=== PATIENT | female | born 1950 | race Caucasian/White ===

== ENCOUNTER 2019-04-11 14:20 | Emergency (ER) | payer OTHER ==
--- OUTSIDE RECORDS SUMMARY | 2019-04-11 14:23 | XMS REPORT ---
:1950 Author Organization [facility] Care Team Providers Name Role Phone Meliza Worthy Provider Role Unavailable Allergies, Adverse Reactions, Alerts Substance Reaction Event Type N.K.D.A. Info Not Available Non Drug Allergy Problems Problem Type Condition Code Onset Dates Condition Status Assessment Pain in right shoulder M25.511 Active Assessment Pain in left shoulder M25.512 Active Assessment Need for influenza vaccination Z23 Active Assessment Sleeping difficulty G47.9 Active Assessment Osteoporosis without current M81.0 Active pathological fracture, unspecified osteoporosis type Problem Allergic rhinitis, unspecified J30.9 Active seasonality, unspecified trigger Problem Pneumococcal vaccine administered Z23 Active Problem Acute pain of right shoulder M25.511 Active Problem Elevated BP without diagnosis of R03.0 Active hypertension Problem Mixed hyperlipidemia E78.2 Active Problem Urinary frequency R35.0 Active Problem Status post fall Z91.81 Active Problem Vitamin D deficiency E55.9 Active Problem Thyroid disorder screening Z13.29 Active Problem Lipid screening Z13.220 Active Problem Pain in right shoulder M25.511 Active Problem Pain in left shoulder M25.512 Active Problem Memory problem R41.3 Active Problem Seasonal allergies J30.2 Active Problem Other chronic pain G89.29 Active Problem Sinus problem J34.9 Active Problem Depression screening Z13.31 Active Problem Fatigue, unspecified type R53.83 Active Problem Osteoporosis without current M81.0 Active pathological fracture, unspecified osteoporosis type Problem Sleeping difficulty G47.9 Active Problem Hypertension, unspecified type I10 Active Assessment Other chronic pain G89.29 Active Problem Hematuria, unspecified type R31.9 Active Problem Hypertension, uncontrolled I10 Active Problem Skin lesion L98.9 Active Problem Abnormal urinalysis R82.90 Active Problem Thrombocytosis D47.3 Active Problem Hyperglycemia R73.9 Active Problem Diarrhea, unspecified type R19.7 Active Medications Medication Code Code Instructions Start End Status Dosage System Date Date Enalapril ND 94578805487 20 MG Orally October 02, Active 1 tablet Maleate Once a day for 2018 high blood pressure Crestor [facility] 01012559153 20 MG Orally Oct 17, Active 1 tablet Once a day 2018 Amitriptyline [facility] 64273836590 25 MG Orally Jan 29, Active 1 tablet HCl Once a day 2018 at bedtime for sleep/pain Amlodipine [facility] 48919557258 10 MG Orally October 10, Active 1 tablet Besylate Once a day for 2019 high blood pressure Fish Oil [facility] [address]-33 Orally Once Active 2 capsules daily (OTC) Vitamin D [facility] 42185368973 1000 UNIT Active 2 tablets Orally Once (OTC) daily Alendronate [facility] 37798336789 70 MG Orally Jan 29May Active 1 tablet Sodium Once a week 2018 27, 30 minutes 2020 before the first food, beverage or medicine of the day with plain water Results No Known Results Immunizations Vaccine Administration Date FLUZONE HIGH DOSE OVER 65 Jan 29, 2019 Summary Purpose eClinicalWorks Submission
--- OUTSIDE RECORDS SUMMARY | 2019-04-11 14:23 | XMS REPORT ---
:1950 Author Organization eClinicalWorks Care Team Providers Name Role Phone Meliza Worthy Provider Role Unavailable Allergies No Known Allergies Problems Problem Type Condition Code Onset Dates Condition Status Problem Abnormal urinalysis R82.90 Active Problem Mixed hyperlipidemia E78.2 Active Problem Hyperglycemia R73.9 Active Problem Lipid screening Z13.220 Active Problem Acute pain of right shoulder M25.511 Active Problem Fatigue, unspecified type R53.83 Active Problem Pneumococcal vaccine administered Z23 Active Problem Allergic rhinitis, unspecified J30.9 Active seasonality, unspecified trigger Problem Depression screening Z13.31 Active Problem Vitamin D deficiency E55.9 Active Problem Urinary frequency R35.0 Active Problem Thyroid disorder screening Z13.29 Active Problem Thrombocytosis D47.3 Active Problem Sinus problem J34.9 Active Problem Seasonal allergies J30.2 Active Problem Elevated BP without diagnosis of R03.0 Active hypertension Problem Status post fall Z91.81 Active Problem Skin lesion L98.9 Active Problem Hypertension, unspecified type I10 Active Problem Memory problem R41.3 Active Problem Hematuria, unspecified type R31.9 Active Problem Hypertension, uncontrolled I10 Active Problem Diarrhea, unspecified type R19.7 Active Medications Medication Code System Code Instructions Start Date End Date Status Dosage Crestor [facility] [id number] 20 MG Orally Once Jan 16, Active 1 tablet a day 2019 Results No Known Results Summary Purpose eClinicalWorks Submission
[2019-04-11] MEDS ORDERED: HYDROCODONE/APAP 5/325 MG TAB ONE ×2 (15:41→17:29)
--- NOTE | 2019-04-11 17:41 | ER ---
Nurse's Notes [facility] Name: Lolita Larkin Age: 69 yrs Sex: Female : 1950 Arrival Date: 04/11/2019 Time: 14:23 Bed 16 Private MD: Diagnosis: Fracture of upper end of tibia-Nondisplaced right tibial plateau fracture Presentation: 04/11 15:10 Presenting complaint: Patient states: "I was coming down some steps and fell and my aa5 whole right leg is hurting". Transition of care: patient was not received from another setting of care. Onset of symptoms was April 09, 2019. Risk Assessment: Do you want to hurt yourself or someone else? Patient reports no desire to harm self or others. Initial Sepsis Screen: Does the patient meet any 2 criteria? No. Patient's initial sepsis screen is negative. Does the patient have a suspected source of infection? No. Patient's initial sepsis screen is negative. Care prior to arrival: None. 15:10 Acuity: RON 4 aa5 15:10 Method Of Arrival: Wheelchair aa5 Historical: - Allergies: 15:10 No Known Allergies; aa5 - PMHx: 15:10 Hypertension; aa5 - PSHx: 15:10 ; Appendectomy; Hernia repair; Tonsillectomy; aa5 - Immunization history:: Flu vaccine is not up to date. - Social history:: Smoking status: Patient uses tobacco products, smokes one-half pack cigarettes per day. - Ebola Screening: : No symptoms or risks identified at this time. Screenin:30 Abuse screen: Denies threats or abuse. Denies injuries from another. Nutritional ca1 screening: No deficits noted. Tuberculosis screening: No symptoms or risk factors identified. Fall Risk Ambulatory Aid- Crutches/Cane/Walker (15 pts). Assessment: 15:30 General: Appears in no apparent distress. comfortable, Behavior is calm, cooperative, ca1 appropriate for age. Pain: Complains of pain in right leg and right knee Pain currently is 10 out of 10 on a pain scale. Neuro: Level of Consciousness is awake, alert, obeys commands, Oriented to person, place, time, situation, Appropriate for age. Derm: Skin is intact, is healthy with good turgor, Skin is pink, warm \\T\\ dry. Bruising that is green, on right knee. Musculoskeletal: Circulation, motion, and sensation intact. Capillary refill < 3 seconds, Range of motion: limited in right knee Swelling present in right knee. 16:29 Reassessment: Patient appears in no apparent distress at this time. Patient and/or ca1 family updated on plan of care and expected duration. Pain level reassessed. Patient is alert, oriented x 3, equal unlabored respirations, skin warm/dry/pink. Vital Signs: 15:20 BP 139 / 64; Pulse 106; Resp 16 S; Temp 97.8(TE); Pulse Ox 99% on R/A; Weight 49.44 kg aa5 (R); Height 4 ft. 11 in. (149.86 cm); Pain 10/10; 19:09 BP 158 / 77; Pulse 77; Resp 16; Temp 97.5(O); Pulse Ox 97% on R/A; mh5 15:20 Body Mass Index 22.02 (49.44 kg, 149.86 cm) aa5 ED Course: 14:23 Patient arrived in ED. as 14:56 Lam Bain, BALWINDER is Primary Nurse. mg2 15:10 Arm band placed on. aa5 15:18 Triage completed. aa5 15:24 Geo Mayfield NP is PHCP. pm1 15:24 Enmanuel Petit MD is Attending Physician. pm1 15:30 Patient has correct armband on for positive identification. Bed in low position. Call ca1 light in reach. Side rails up X 1. Pulse ox on. NIBP on. Pillow given. 15:54 Knee Right 3 View XRAY In Process Unspecified. EDMS 17:11 Tib Fib Right XRAY In Process Unspecified. EDMS 17:39 Blayne Chavez MD is Referral Physician. pm1 18:00 Orthoglass splint: Posterior long leg splint applied on right leg. mh5 19:07 Crutch training done. mh5 19:31 No provider procedures requiring assistance completed. Patient did not have IV access rv during this emergency room visit. Administered Medications: 15:39 Drug: [place] 5 mg-325 mg 1 tabs {Note: RASS - 0.} Route: PO; ca1 16:30 Follow up: Response: No adverse reaction; Pain is decreased; RASS: Alert and Calm (0) ca1 17:33 Drug: [place] 5 mg-325 mg 1 tabs {Note: RASS - 0.} Route: PO; ca1 19:30 Follow up: Response: RASS: Alert and Calm (0) rv 18:21 Drug: fentaNYL (PF) 25 mcg {Note: RASS - 0.} Route: IM; Site: right deltoid; ca1 19:30 Follow up: Response: Pain is decreased; RASS: Alert and Calm (0) rv Outcome: 17:40 Discharge ordered by MD. pm1 19:31 Discharged to home with crutches, with family. rv 19:31 Condition: good 19:31 Discharge instructions given to patient, family, Instructed on discharge instructions, follow up and referral plans. medication usage, crutch walking, Demonstrated understanding of instructions, follow-up care, medications, crutch walking, Prescriptions given X 1. 19:31 Patient left the ED. rv Signatures: Dispatcher [employer] EDMS Christina Simon Audri, RN RN aa5 Geo Mayfield, ANSLEY UNARMED SECURITY GUARD pm1 Stefani Simon [facility] Lam Bain RN RN [facility] Darrian Mckee RN RN rv Colette Burger RN RN ca1 Corrections: (The following items were deleted from the chart) 15:18 15:17 Arm band placed on aa5 aa5
--- NOTE | 2019-04-11 17:41 | EDPHYS ---
Physician Documentation [facility] Name: Lolita Larkin Age: 69 yrs Sex: Female : 1950 Arrival Date: 04/11/2019 Time: 14:23 Bed 16 Private MD: ED Physician Enmanuel Petit HPI: 04/11 15:28 This 69 yrs old Female presents to ER via Wheelchair with complaints of Right pm1 knee pain. 15:28 The patient presents with pain, swelling. The complaints affect the right knee. pm1 Context: The problem was sustained outdoors, resulted from the patient falling, while jumping, the patient can partially bear weight, using walker since the injury, Problem is a result from a previous injury: No. Onset: The symptoms/episode began/occurred 2 day(s) ago. Modifying factors: The symptoms are alleviated by lidocaine patched, mirtha wrap, rest and elevation. Associated signs and symptoms: Pertinent positives: swelling, of the right knee, Pertinent negatives calf tenderness, fever, numbness, tingling. Treatment prior to arrival includes: mirtha wrap, elevation of the extremity, over the counter medications, Lidoderm patches. Severity of symptoms: in the emergency department the symptoms are actually worse. The patient has not experienced similar symptoms in the past. It is unknown whether or not the patient has recently seen a physician. Patient was jumping down from a trailer but lost her balance and then landed on her right knee on the ground. Patient was able to get up and walk to her vehicle after the injury but has not been able to walk without a walker since then. Has been applying an mirtha wrap and lidocaine patches with limited relief. No other injury present: No pain or injury to head, neck, back, hips, ankles, or feet. Historical: - Allergies: 15:10 No Known Allergies; aa5 - PMHx: 15:10 Hypertension; aa5 - PSHx: 15:10 ; Appendectomy; Hernia repair; Tonsillectomy; aa5 - Immunization history:: Flu vaccine is not up to date. - Social history:: Smoking status: Patient uses tobacco products, smokes one-half pack cigarettes per day. - Ebola Screening: : No symptoms or risks identified at this time. ROS: 15:28 Constitutional: Negative for fever, chills, and weight loss, Eyes: Negative for injury, pm1 pain, redness, and discharge, ENT: Negative for injury, pain, and discharge, Neck: Negative for injury, pain, and swelling, Cardiovascular: Negative for chest pain, palpitations, and edema, Respiratory: Negative for shortness of breath, cough, wheezing, and pleuritic chest pain, Abdomen/GI: Negative for abdominal pain, nausea, vomiting, diarrhea, and constipation, Back: Negative for injury and pain, : Negative for injury, bleeding, discharge, and swelling. 15:28 Skin: Negative for injury, rash, and discoloration, Neuro: Negative for headache, weakness, numbness, tingling, and seizure. 15:28 MS/extremity: Positive for pain, swelling, of the right knee, Negative for abrasion, deformity, laceration, paresthesias, tingling. Exam: 15:28 Constitutional: This is a well developed, well nourished patient who is awake, alert, pm1 and in no acute distress. Head/Face: Normocephalic, atraumatic. Neck: Trachea midline, no thyromegaly or masses palpated, and no cervical lymphadenopathy. Supple, full range of motion without nuchal rigidity, or vertebral point tenderness. No Meningismus. Chest/axilla: Normal chest wall appearance and motion. Nontender with no deformity. No lesions are appreciated. Cardiovascular: Regular rate and rhythm with a normal S1 and S2. No gallops, murmurs, or rubs. Normal PMI, no JVD. No pulse deficits. Respiratory: Lungs have equal breath sounds bilaterally, clear to auscultation and percussion. No rales, rhonchi or wheezes noted. No increased work of breathing, no retractions or nasal flaring. Abdomen/GI: Soft, non-tender, with normal bowel sounds. No distension or tympany. No guarding or rebound. No evidence of tenderness throughout. Back: No spinal tenderness. No costovertebral tenderness. Full range of motion. Skin: Warm, dry with normal turgor. Normal color with no rashes, no lesions, and no evidence of cellulitis. 15:28 Musculoskeletal/extremity: Extremities: grossly normal except: noted in the right knee: swelling, tenderness, There is no evidence of abrasion, deformity, laceration, Pulses: noted to be 2+ in the right dorsalis pedis artery, the right leg Sensation intact. 15:28 Neuro: Orientation: is normal, Motor: is normal, moves all fours, Sensation: is normal, no obvious gross deficits. Vital Signs: 15:20 BP 139 / 64; Pulse 106; Resp 16 S; Temp 97.8(TE); Pulse Ox 99% on R/A; Weight 49.44 kg aa5 (R); Height 4 ft. 11 in. (149.86 cm); Pain 10; 19:09 BP 158 / 77; Pulse 77; Resp 16; Temp 97.5(O); Pulse Ox 97% on R/A; mh5 15:20 Body Mass Index 22.02 (49.44 kg, 149.86 cm) aa5 Procedures: 19:24 Splinting: Splint applied to right leg using Orthoglass splint, posterior long leg pm1 splint. applied by myself. tech. Examined by me, post splint application: neurovascular intact, 2+ distal pulses palpable, brisk capillary refill noted, Patient tolerated well, right foot placed in 90 degree angle. Ample padding applied to heel of foot. MDM: 15:24 Patient medically screened. [facility] 15:35 Data reviewed: vital signs. Data interpreted: Pulse oximetry: on room air is 99 %. pm1 Interpretation: normal. 17:39 Counseling: I had a detailed discussion with the patient and/or guardian regarding: the pm1 historical points, exam findings, and any diagnostic results supporting the discharge/admit diagnosis, radiology results, the need for outpatient follow up, for definitive care, a orthopedic surgeon, to return to the emergency department if symptoms worsen or persist or if there are any questions or concerns that arise at home. 04/11 15:28 Order name: Knee Right 3 View XRAY; Complete Time: 17:54 pm1 04/11 16:46 Order name: Tib Fib Right XRAY; Complete Time: 17:54 pm1 04/11 16:48 Order name: Splint - Posterior Leg; Complete Time: 17:39 pm1 04/11 18:01 Order name: Crutches; Complete Time: 19:06 [facility] Administered Medications: 15:39 Drug: [place] 5 mg-325 mg 1 tabs {Note: RASS - 0.} Route: PO; ca1 16:30 Follow up: Response: No adverse reaction; Pain is decreased; RASS: Alert and Calm (0) ca1 17:33 Drug: [place] 5 mg-325 mg 1 tabs {Note: RASS - 0.} Route: PO; ca1 19:30 Follow up: Response: RASS: Alert and Calm (0) rv 18:21 Drug: fentaNYL (PF) 25 mcg {Note: RASS - 0.} Route: IM; Site: right deltoid; ca1 19:30 Follow up: Response: Pain is decreased; RASS: Alert and Calm (0) rv Disposition: 04/11/19 17:40 Discharged to Home. Impression: Fracture of upper end of tibia - Nondisplaced right tibial plateau fracture. - Condition is Stable. - Discharge Instructions: Cast or Splint Care, Adult, Crutch Use, Nondisplaced Tibial Plateau Fracture. - Prescriptions for Tylenol- Codeine #3 300-30 mg Oral Tablet - take 2 tablet by ORAL route every 6 hours As needed; 30 tablet. - Medication Reconciliation Form, Thank You Letter, Antibiotic Education, Prescription Opioid Use form. - Follow up: Emergency Department; When: As needed; Reason: Worsening of condition. Follow up: Blayne Chavez; When: 2 - 3 days; Reason: Recheck today's complaints, Continuance of care, Re-evaluation by your physician. - Problem is new. - Symptoms have improved. Addendum: 04/14/2019 08:08 Co-signature as Attending Physician, Enmanuel Petit MD I agree with the assessment and c brady plan of care. Signatures: Dispatcher [employer] EDEnmanuel Willams MD MD cha Calderon, Audri, RN RN aa5 Geo Mayfield, ANSLEY GRIEVANCE AND APPEALS COORDINATOR pm1 Stefani Simon 5 Darrian Mckee RN RN rv Colette Burger RN RN ca1 Corrections: (The following items were deleted from the chart) 04/11 19:31 17:40 04/11/2019 17:40 Discharged to Home. Impression: Fracture of upper end of tibia - rv Nondisplaced right tibial plateau fracture. Condition is Stable. Discharge Instructions: Nondisplaced Tibial Plateau Fracture, Cast or Splint Care, Adult, Crutch Use. Prescriptions for Tylenol-Codeine #3 300-30 mg Oral Tablet - take 2 tablet by ORAL route every 6 hours As needed; 30 tablet. and Forms are Medication Reconciliation Form, Thank You Letter, Antibiotic Education, Prescription Opioid Use. Follow up: Emergency Department; When: As needed; Reason: Worsening of condition. Follow up: Blayne Chavez; When: 2 - 3 days; Reason: Recheck today's complaints, Continuance of care, Re-evaluation by your physician. Problem is new. Symptoms have improved. pm1
--- NOTE | 2019-04-11 17:50 | RAD REPORT ---
EXAM DESCRIPTION: RAD - Tib Fib Right - 04/11/2019 5:11 pm CLINICAL HISTORY: Right leg pain . FINDINGS: Nondisplaced fracture involves the proximal diaphysis of the tibia extending into the meta physis. It probably also involves the lateral tibial plateau. No dislocation Osteoporosis
--- NOTE | 2019-04-11 17:50 | RAD REPORT ---
EXAM DESCRIPTION: RAD - Knee Right 3 View - 04/11/2019 3:54 pm CLINICAL HISTORY: Right knee pain FINDINGS: Nondisplaced fracture involves the proximal diaphysis of the tibia extending into the meta physis. It probably also involves the lateral tibial plateau. No dislocation Osteoporosis
[2019-04-11] MEDS ORDERED: FENTANYL CITR 100 MCG/2 ML ONE (18:20)
[2019-04-11 19:55] VITALS: BP 158/77; TEMP 97.5; O2SAT 97
== END 2019-04-11 19:31 | disposition home or self-care (01) ==
LOC: ER 14:20
PROC: 2W3LX1Z Immobilization of Right Lower Extremity using Splint (ICD-10-PCS; principal; 2019-04-11)
DX: S82.144A Nondisplaced bicondylar fracture of right tibia, initial encounter for closed fracture (principal); W10.9XXA Fall (on) (from) unspecified stairs and steps, initial encounter; Y93.9 Activity, unspecified; Y92.9 Unspecified place or not applicable; F17.210 Nicotine dependence, cigarettes, uncomplicated
CPT/HCPCS: 73562; 73590; 96372; 99284; 29505; J3010

== ENCOUNTER 2022-03-29 05:59 | Day surgery (SDC) | payer OTHER ==
--- NOTE | 2022-03-28 15:00 | RAD REPORT ---
EXAM DESCRIPTION: RAD - Chest Pa And Lat (2 Views) - 03/28/2022 2:56 pm CLINICAL HISTORY: Pre op pending cholecystectomy COMPARISON: No comparisons FINDINGS: Lines: None. Lungs: No evidence of edema or pneumonia. Pleural: No significant pleural effusions or pneumothorax. Cardiac: The heart size is within normal limits. Mediastinum: Within normal limits. Bones: No acute fractures. Other: None IMPRESSION: No acute cardiopulmonary disease.
[2022-03-28 15:02] LABS: Absolute Lymphocytes (CBC) 2.1 K/uL (0.7-4.9); Hematocrit 38.5 % (36.0-45.0); Lymphocytes % 31.7 % (15.3-44.8); MCV 98.2 fL (80-100); MPV 6.9 fL (7.6-11.3); RBC Red Blood Cell Count 3.91 M/uL (3.86-4.86)
[2022-03-28 15:23] LABS: ALT/SGPT 12 U/L (13-56); AST/SGOT 11 U/L (15-37); Albumin 3.6 g/dL (3.4-5.0); Alkaline Phosphatase 77 U/L (45-117); Amylase 58 U/L (25-115); BUN Blood Urea Nitrogen 14 mg/dL (7-18); Bicarbonate 28 mmol/L (21-32); Bilirubin Total 0.3 mg/dL (0.2-1.0); Glomerular Filtration Rate 72 ml/min (=/>90); Glucose Level 102 mg/dL (74-106); Lipase 196 U/L (73-393); Potassium 5.5 mmol/L (3.5-5.1); Protein, Total 7.3 g/dL (6.4-8.2); Sodium Level 136 mmol/L (136-145)
[2022-03-28 15:27] LABS: Bilirubin Direct < 0.1 mg/dL (0-0.2)
[2022-03-29] MEDS ORDERED: CEFOXITIN SODIUM 1 GM/VIAL ONE (06:22)
[2022-03-29] MEDS ORDERED: Ringers Lactate 1,000 ML IV ONE (06:22)
[2022-03-29] MEDS ORDERED: HYDRALAZINE HCL 20 MG/ML VIAL ONE (06:35)
[2022-03-29] MEDS ORDERED: LIDOCAINE 2% MPF 5 ML VIAL ONE (07:16)
[2022-03-29] MEDS ORDERED: FENTANYL CITR 100 MCG/2 ML ONE (07:16)
[2022-03-29] MEDS ORDERED: ROCURONIUM 50 MG/5 ML VIAL IV ONE (07:16)
[2022-03-29] MEDS ORDERED: propofoL 200 MG/20 ML VIAL IV ONE (07:16)
[2022-03-29] MEDS ORDERED: NS 0.9% VIAL 10 ML ONE (07:39)
[2022-03-29] MEDS ORDERED: KETOROLAC 30 MG/ML INJ ONE (07:48)
[2022-03-29] MEDS ORDERED: dexAMETHasone 10 MG/ML VIAL ONE (07:48)
[2022-03-29] MEDS ORDERED: ONDANSETRON 4 MG/2 ML VIAL ONE (07:57)
[2022-03-29] MEDS ORDERED: GLYCOPYRROLATE 0.2 MG/ML SYR ONE (08:00)
[2022-03-29] MEDS ORDERED: NEOSTIGMINE 1 MG/ML -5 ML ONE (08:01)
[2022-03-29] MEDS ORDERED: SUGAMMADEX SODIUM 200 MG/2 ML VIAL IV ONE (08:09)
--- NOTE | 2022-03-29 08:11 | P.BOP ---
Preoperative diagnosis: acute cholecystitis, symptomatic cholelithiasis Postoperative diagnosis: same Primary procedure: Laparoscopic cholecystectomy Estimated blood loss: <10cc Specimen: gb Findings: as above Anesthesia: General Complications: None Transferred to: Recovery Room Condition: Good
[2022-03-29] MEDS: HYDROMORPHONE HCL 1 MG/ML INJ ONE ×3 (08:22→08:39)
[2022-03-29 09:03] VITALS: BP 132/55; TEMP 98.3; O2SAT 98
[2022-03-29] MEDS ORDERED: CODEINE 30MG/APAP 300MG TAB PO ONE (09:11)
[2022-03-29] MEDS ORDERED: CODEINE 30MG/APAP 300MG TAB ONE (09:18)
--- NOTE | 2022-03-29 11:12 | OP ---
Date of Procedure: 03/29/2022 Surgeon: Mac Simon MD Preoperative Diagnosis: Acute cholecystitis, symptomatic cholelithiasis. Postoperative Diagnosis: Acute cholecystitis, symptomatic cholelithiasis. Procedure: Laparoscopic cholecystectomy. Estimated Blood Loss: Less than 10 cc. Specimen: Gallbladder. Anesthesia: General plus local. Indication: This is a case of a 72-year-old patient who comes to us with above diagnosis. Fully exp lained the benefits, alternatives, and risks of laparoscopic, possible open cholecystectomy, which in clude, but not limited to, infection, bleeding, damage to adjacent structures, anesthesia complicatio n, choledocholithiasis, bile leak, pancreatitis, VT, and even . She also understands this may n ot relieve any symptoms. She may need more than one surgical intervention. She understood, signed a consent. Description Of Procedure: Patient was brought to the operating room, placed in supine position. Ane sthesia was done without complication. Abdominal area was prepped and draped in the usual sterile fa shion. Marcaine 0.5% was injected for local anesthetic followed by sharp incision of the skin in the periumbilical region. Incision was carried down to fascia, which was opened under direct vision. P eritoneum was encountered, opened under direct vision. Vicryl #1 placed inside the fascia. Shawn t rocar was carefully introduced. Pneumoperitoneum was obtained. I placed 3 more trocars, 5 mm each o ne of them, in the epigastric, right upper quadrant area under direct visualization. This allowed me to put a grasper in the fundus of the gallbladder. Another grasper in the infundibulum, retracting the gallbladder in the inferolateral fashion, exposing the triangle of Calot, obtaining critical view . Cystic duct and cystic artery were clearly isolated, freed circumferentially and a connection betw een those and the gallbladder were clearly identified. I proceeded to ligate those by using at least 3 clips proximal, 1 clip distal, ligation in the middle. Same was done with the cystic artery. No bile leak. No bleeding. The gallbladder was removed from the liver using Bovie cauterizer and remov ed from abdominal cavity using EndoCatch through the umbilical incision. Area was inspected once aga in. No bile leak. No bleeding. At that moment, I proceeded to remove the trocars under direct visi on, deflated pneumoperitoneum. Closed the fascia with #1 Vicryl, irrigated the subcutaneous tissue, closed that with 3-0 chromic and the skin with olivier. Sponge count and instrument counts correct. Patient tolerated the procedure well. Patient was sent to Recovery in stable condition. HUDSON/YADI Voice ID: [id number] Report ID: [id number]
--- NOTE | 2022-03-29 11:24 | DS ---
Date of Discharge: 03/29/2022 Diagnoses: Acute cholecystitis and symptomatic cholelithiasis. Procedure: Laparoscopic cholecystectomy surgery by Dr. Simon. Discharge Disposition: Home. Condition On Discharge: Stable. Follow Up: In my office in 1 week. Call for appointment at [phone]. Discharge Instructions: Keep area dry for 48 hours, then may shower. AMANDA Voice ID: [id number] Report ID: [id number]
--- NOTE | 2022-03-30 17:51 | EKG ---
Test Date: 2022-03-28 Test Time: 14:40:06 Major Appliance Assembly Supervisor: ELBERT MEASUREMENT RESULTS: Intervals: Rate: 77 TX: 132 QRSD: 60 QT: 378 QTc: 427 [place]: P: 66 TX: 132 QRS: 46 T: 70 INTERPRETIVE STATEMENTS: Normal sinus rhythm Possible Left atrial enlargement ST & T wave abnormality, consider anterior ischemia Abnormal ECG Compared to ECG 03/03/2005 09:15:00 No significant changes Electronically Signed On 03-30-22 17:46:03 ROTARY FILTER OPERATOR by Sandro Waterman
== END 2022-03-29 09:40 | disposition home or self-care (01) ==
LOC: OR 05:59
PROVIDERS: ATTEND Surgery
PROC: 0FT44ZZ Resection of Gallbladder, Percutaneous Endoscopic Approach (ICD-10-PCS; principal; 2022-03-29 07:30)
DX: K80.10 Calculus of gallbladder with chronic cholecystitis without obstruction (principal); I10 Essential (primary) hypertension
CPT/HCPCS: 93005; 85025; 80048; 36415 ×2; 82150; 84132; 80076; 88304; 83690; 71046; 47562; J0360; J2704; J2001; J3010; J1100; A4216; J1170; J2710; J7120; J0694; J2405

== ENCOUNTER 2022-10-02 19:41 | Emergency (ER) | payer OTHER ==
--- OUTSIDE RECORDS SUMMARY | 2022-10-02 19:49 | XMS REPORT | Continuity of Care Document ---
:1950 Author Organization [facility] t Address [address] [place] [address] [address] [place] [address] Care Team Providers Name Role Phone ADRIANNA WOODALL Primary Care Physician Unavailable Yumiko Guevara Attending Clinician Unavailable Adrianna Woodall Attending Clinician Unavailable Muriel Sepulveda Attending Clinician Unavailable Meliza Worthy Attending Clinician Unavailable Dave Caruso Attending Clinician MARCELO TODD Attending Clinician Unavailable Marcelo Todd MD Attending Clinician Doctor Unassigned, [place] Attending Clinician Unavailable Clinic, Pcp Neurology Attending Clinician Unavailable Jenny Jerome RN Attending Clinician Unavailable GEO SONI Attending Clinician Unavailable GEO SONI Attending Clinician Unavailable MARCELO TODD Admitting Clinician Unavailable GEO SONI Admitting Clinician Unavailable Payers Payer Name Policy Type Policy Number Effective Date Expiration Date S daniel [employer] [id number] 2020spring 00:00:[facility] [id number] [facility] iv[facility] ing Medicare 00:00:[address] [facility] MEDICARE MB [id number] 2018 [facility] NOVITAS 00:00:00 - [facility] [employer] C1 [id number] 2020 [facility] iván ing Medicare 00:00:00 [facility] MEDICARE MB [id number] 2018 [facility] NOVITAS 00:00:00 [facility] MEDICARE MB [id number] 2018 [facility] NOVITAS 00:00:00 [facility] [employer] C1 [id number] 2020 [facility] iván ing Medicare 00:00:00 [facility] [employer] C1 [id number] 2020 [facility] iván ing Medicare 00:00:00 [facility] MEDICARE MB [id number] 2018 [facility] NOVITAS 00:00:00 [facility] Problems Condition Condition Condition Status Onset Resolution Last Treating Co mments Source Name Details Category Date Date Treatment Clinician Date 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, fracture, 04-23 ity of closed, closed, 00:00: [place] initial initial 00 Medical encounter encounter Bran [id number] Vitamin D Problem Comm on deficiency [facility] [id number] Hypertensi Problem Com mon on, Spirit uncontroll - [facility] ed [facility] [id number] Other Problem Common chronic [facility] pain [facility] [id number] Sleeping Problem Comm on difficulty [facility] [id number] Osteoporos Problem Com mon is without Spirit current - [facility] pathologic [facility] fracture, Medical unspecifie Center d osteoporos is type Adjustment Grieving Problem Com mon disorder Spirit with - [facility] depressed [facility] [id number] Pain in Problem Common right Spirit shoulder [facility] Mixed Mixed Problem Common hyperlipid hyperlipid Sp iván emia emia [facility] [id number] Closed Problem Common nondisplac [facility] - [facility] fracture St of right [facility] tibial Medical plateau Center with routine healing, subsequent encounter [id number] Primary Problem Comm on osteoarthr Spirit itis of - [facility] right knee [facility] Hyperlipid Borderline Problem C ommon aemia hyperlipid [facility] emia [facility] Pure Essential Problem Common hyperglyce hypertrigl Sp iván ridemia yceridemia [facility] [id number] Recurrent Problem Com mon falls [facility] [id number] Depression Problem Co mmon with Spirit anxiety [facility] [id number] Primary Problem Common insomnia [facility] [id number] Smokes 1/2 Problem Co mmon pack a day Spirit or less [facility] [id number] Memory Problem Common change [facility] Gallstones Gallstones Problem C ommon [facility] [id number] Status Problem Common post fall [facility] [id number] Allergic Problem Commo n rhinitis, Spirit unspecifie - [facility] d [facility] y, Medical unspecifie Center d trigger Amnesia Amnesia Problem Active 2022-09-02 Me nadine (finding) (finding) 13:46:22 l Active Tariq Problem 09/02/2022 [facility] [place] 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 13:46:22 l s s Tariq (disorder) (disorder) Active Problem 09/02/2022 [facility] [place] Allergies, Adverse Reactions, Alerts Allergy Allergy Status Severity Reaction(s) Onset Inactive Treating Comm ents Source Name Type Date Date Clinician gabapent gabapent Active vomiting Comm on in in [facility] NO KNOWN Drug Active Univers ALLERGIE Class ity of S [facility] No Known No Known Active Memori a Medicati Medicati l on on Tariq Allergie Allergie s s Social History Social Habit Start Date Stop Date Quantity Comments Source History of Current Smoker [facility] Spi rit - Tobacco Use [facility] Sex Assigned At Common Sp iván - [facility] Exposure to Not sure University of SARS-CoV-2 [place] [facility] (event) Branch Tobacco use and 2021-02-21 2021-02-21 Never used Universit y of exposure 00:00:00 00:00:00 [facility] Smoking Status Start Date Stop Date Source Tobacco smoking status Mello Potter Current Smoker 2022-08-18 00:00:00 [facility] Medications Ordered Filled Start Stop Current Ordering Indication Dosage Frequency Signature Comments Components Source Medication Medication Date Date Medication? Clinician (SIG) Name Name Jaswinder San No 1{table QD Rosuvastat n Calcium n Calcium 6-02 t} in Calcium 10 MG 10 MG 00:00: 10 MG 00 acetaminoph Yes TAKE 1 Prem emily en-hydrocod 5-31 TABLET BY l one 325 19:38: MOUTH [place]ind[place] mg-5 mg 00 TWICE oral tablet DAILY FOR 28 DAYS alendronate Yes TAKE ONE Me moria 70 mg oral 5-31 TABLET BY l tablet 19:38: MOUTH 30 Tariq 00 MINUTES BEFORE THE FIRST FOOD, BEVERAGE, OR MEDICINE OF THE DAY WITH PLAIN WATER ONCE A WEEK amitriptyli Yes TAKE 1 Prem emily ne 25 mg 5-31 TABLET BY l oral tablet 19:38: MOUTH ONCE [place]ind[place] 00 DAILY AT BEDTIME FOR SLEEP/PAIN sertraline Yes TAKE 1 Memor ia 100 mg oral 5-31 TABLET BY l tablet 19:38: MOUTH ONCE Sushma nn 00 DAILY enalapril 0 Yes 0 Memoria 20 mg oral 5-31 Refill(s) l tablet 19:37: [place] 00 amLODIPine 0 Yes 0 Memoria 10 mg oral 5-31 Refill(s) l tablet 19:37: [place] 00 Sertraline Sertraline 2021-04 No 1{table QD Sertraline HCl 100 MG HCl 100 MG 1-11 t} HCl 100 MG 00:00: 00 Sertraline Sertraline 2021-04 No 1{table QD Sertraline HCl 100 MG HCl 100 MG 1-11 t} HCl 100 MG 00:00: 00 Sertraline Sertraline 2021- No 1{table QD Sertraline HCl 100 MG HCl 100 MG 1-11 t} HCl 100 MG 00:00: 00 Sertraline Sertraline 2021- No 1{table QD Sertraline HCl 100 MG HCl 100 MG 1-11 t} HCl 100 MG 00:00: 00 Sertraline Sertraline 2021- No 1{table QD Sertraline HCl 100 MG HCl 100 MG 1-11 t} HCl 100 MG 00:00: 00 Sertraline Sertraline 2021-0 No 1{table QD Sertraline HCl 50 MG HCl 50 MG 4-12 t} HCl 50 MG 00:00: 00 Sertraline Sertraline 2021-0 No 1{table QD Sertraline HCl 50 MG HCl 50 MG 4-12 t} HCl 50 MG 00:00: 00 Sertraline Sertraline 2021-0 No 1{table QD Sertraline HCl 50 MG HCl 50 MG 4-12 t} HCl 50 MG 00:00: 00 Acetaminoph Acetaminoph 2021- No QID Acetaminop en-Codeine en-Codeine 04-22 hen-Codein #3 300-30 #3 300-30 00:00: 00:00 e #3 MG MG 00 :00 300-30 MG Acetaminoph Acetaminoph 2020-04- No QID Acetaminop en-Codeine en-Codeine 05-24 hen-Codein #3 300-30 #3 300-30 00:00: 00:00 e #3 MG MG 00 :00 300-30 MG Macrobid Macrobid 2020-04 202- No 1{capsu BID Macrobid 100 MG 100 MG 05-09 le_with 100 MG 00:00: 00:00 _food} 00 :00 Macrobid Macrobid 2020-04- No 1{capsu BID Macrobid 100 MG 100 MG 05-09- le_with 100 MG 00:00: 00:00 _food} 00 :00 HYDROcodone HYDROcodone 2020-04- No QID HYDROcodon -Acetaminop -Acetaminop - 12-17 e-Acetamin hen 5-325 hen 5-325 00:00: 00:00 ophen MG MG 00 :00 5-325 MG HYDROcodone HYDROcodone 2020-04- No QID HYDROcodon -Acetaminop -Acetaminop - 12-17 e-Acetamin hen 5-325 hen 5-325 00:00: 00:00 ophen MG MG 00 :00 5-325 MG amLODIPine 2020-04 Yes [id number] 10mg Take 1 Univers 10 mg 1-24 tablet by ity of tablet 00:00: mouth [place] 00 daily. Medical Branch amLODIPine 2020-04 Yes [id number] 10mg Take 1 Univers 10 mg 1-24 tablet by ity of tablet 00:00: mouth [place] 00 daily. [facility] Branch amLODIPine 2020-04 Yes [id number] 10mg Take 1 Univers 10 mg 1-24 tablet by ity of tablet 00:00: mouth [place] 00 daily. [facility] Branch amLODIPine 2020-04 Yes [id number] 10mg Take 1 Univers 10 mg 1-24 tablet by ity of tablet 00:00: mouth [place] 00 daily. [facility] Branch amLODIPine 2020-04 Yes [id number] 10mg Take 1 Univers 10 mg 1-24 tablet by ity of tablet 00:00: mouth [place] 00 daily. [facility] Branch rosuvastati 2020-04 Yes 20mg 20 mg, Univ ers n (CRESTOR) 1-23 Oral, QHS, it y of tablet 20 03:00: [place] 00 on [facility] [place] 02/21/21 Branch at 2100, Until Discontinu ed, Routine cefTRIAXone 2020-04 Yes 1000mg 1,000 mg, Univers (ROCEPHIN) 1-23 IV ity of 1,000 mg in 00:45: Piggyback, [place] NaCl 0.9% 00 Q24H ABX, Medic al (NS) 50 mL First dose Bra nch MINI-BAG on [facility] 02/21/21 at 1845, Until Discontinu ed, Administer over 30 Minutes, 50 mL
Reas on for Anti-Infec tive: Documented Infection< br>Documen salena Infection Site: Urine
D uration of Therapy: Other (see Comments) sulfamethox 2020-04 Yes [id number] 1{tbl} Take 1 Univers azole-trime 1-23 tablet by ity of thoprim 00:00: mouth 2 [place] (BACTRIM 00 (two) Medical DS) 800-160 times Branch mg per daily. tablet docusate 2020-04 Yes [id number] 100mg Take 1 U nivers 100 mg 1-23 capsule by ity of capsule 00:00: mouth 2 [place] 00 (two) Medical times Branch daily. rosuvastati 2020-04 Yes [id number] 20mg Take 1 Univers n 20 mg 1-23 tablet by ity of tablet 00:00: mouth at [place] 00 bedtime. [facility] Branch sulfamethox 2020-04 Yes [id number] 1{tbl} Take 1 Univers azole-trime 1-23 tablet by ity of thoprim 00:00: mouth 2 [place] (BACTRIM 00 (two) Medical DS) 800-160 times Branch mg per daily. tablet docusate 2020-04 Yes [id number] 100mg Take 1 U nivers 100 mg 1-23 capsule by ity of capsule 00:00: mouth 2 [place] (two) Medical times Branch daily. rosuvastati 2020-04 Yes [id number] 20mg Take 1 Univers n 20 mg 1-23 tablet by ity of tablet 00:00: mouth at [place] [address] bedtime. Medical Branch sulfamethox 2020-04 Yes [id number] 1{tbl} Take 1 Univers azole-trime 1-23 tablet by ity of thoprim 00:00: mouth 2 [place] (BACTRIM 00 (two) Medical DS) 800-160 times Branch mg per daily. tablet docusate 2020-04 Yes [id number] 100mg Take 1 U nivers 100 mg 1-23 capsule by ity of capsule 00:00: mouth 2 [place] (two) Medical times [place] daily. rosuvastati 2020-04 Yes [id number] 20mg Take 1 Univers n 20 mg 1-23 tablet by ity of tablet 00:00: mouth at [place] [address] bedtime. Medical Branch sulfamethox 2020-04 Yes [id number] 1{tbl} Take 1 Univers azole-trime 1-23 tablet by ity of thoprim 00:00: mouth 2 [place] (BACTRIM 00 (two) Medical DS) 800-160 times Branch mg per daily. tablet docusate 2020-04 Yes [id number] 100mg Take 1 U nivers 100 mg 1-23 capsule by ity of capsule 00:00: mouth 2 [place] [address] (two) Medical times [place] daily. rosuvastati 2020-04 Yes [id number] 20mg Take 1 Univers n 20 mg 1-23 tablet by ity of tablet 00:00: mouth at [place] [address] bedtime. Medical Branch sulfamethox 2020-04 Yes [id number] 1{tbl} Take 1 Univers azole-trime 1-23 tablet by ity of thoprim 00:00: mouth 2 [place] (BACTRIM 00 (two) Medical DS) 800-160 times Branch mg per daily. tablet docusate 2020-04 Yes [id number] 100mg Take 1 U nivers 100 mg 1-23 capsule by ity of capsule 00:00: mouth 2 [place] 00 (two) Medical times Branch daily. rosuvastati 2020-04 Yes [id number] 20mg Take 1 Univers n 20 mg 1-23 tablet by ity of tablet 00:00: mouth at [place] 00 bedtime. Medical Branch acetaminoph 2020-04- No [id number] 325mg Take 1 Univers en 325 mg -23 11-24 tablet by ity of tablet 00:00: 05:59 mouth [place] 00 :00 every 6 Medical (six) Branch hours as needed for Pain (scale 1-3). acetaminoph 2020-04- No [id number] 325mg Take 1 Univers en 325 mg 1-23 11-24 tablet by ity of tablet 00:00: 05:59 mouth [place] 00 :00 every 6 Medical (six) Branch hours as needed for Pain (scale 1-3). acetaminoph 2020-04- No [id number] 325mg Take 1 Univers en 325 mg -23 11-24 tablet by ity of tablet 00:00: 05:59 mouth [place] 00 :00 every 6 Medical (six) Branch hours as needed for Pain (scale 1-3). acetaminoph 2020-04- No [id number] 325mg Take 1 Univers en 325 mg -23 11-24 tablet by ity of tablet 00:00: 05:59 mouth [place] 00 :00 every 6 Medical (six) Branch hours as needed for Pain (scale 1-3). acetaminoph 2020-04- No [id number] 325mg Take 1 Univers en 325 mg -23 11-24 tablet by ity of tablet 00:00: 05:59 mouth [place] 00 :00 every 6 Medical (six) Branch hours as needed for Pain (scale 1-3). HYDROcodone 2020-04- No [id number] 1{tbl} Take 1 U nivers -acetaminop 04-24 12- tablet by it y of hen 5-325 00:00: 05:59 mouth [place] mg tablet 00 :00 every 4 Medical (four) Branch hours as needed for Pain (scale 7-10) for up to 7 days. Indication s: acute pain HYDROcodone 2020-04- No [id number] 1{tbl} Take 1 U nivers -acetaminop 04-24 tablet by it y of hen 5-325 00:00: 05:59 mouth [place] mg tablet 00 :00 every 4 Medical (four) Branch hours as needed for Pain (scale 7-10) for up to 7 days. Indication s: acute pain HYDROcodone 2020-04 Yes 1{tbl} 1 tablet, Univers -acetaminop 04-23 Oral, ity of hen (NORCO 17:45: Q4HPRN, [place] 5) 5-325 mg 00 Starting Medi nadiya tablet 1 on [facility] tablet 02/21/21 at 1145, Until Discontinu ed, Routine, Pain (scale 7-10) acetaminoph 2020-04 Yes 325mg 325 mg, Un pat en 04-23 Oral, ity of (TYLENOL) 17:15: Q6HPRN, [place] tablet 325 00 Starting Medic al mg on [facility] Branch 02/21/21 at 1115, Until Discontinu ed, Routine, Pain (scale 4-6) amLODIPine 2020-04 Yes 10mg 10 mg, Unive rs (NORVASC) 04-23 Oral, ity of tablet 10 15:00: DAILY, [place] mg 00 First dose Medical on [facility] 02/21/21 at 0900, Until Discontinu ed, Routine famotidine 2020-04 Yes 20mg 20 mg, Unive rs (PEPCID AC) 04-23 Oral, BID, it y of tablet 20 14:00: First dose [place] mg 00 on [facility] [place] 02/21/21 Branch at 0800, Until Discontinu ed, Routine docusate 2020-04 Yes 100mg 100 mg, Unive rs (COLACE) 04-23 Oral, BID, ity o f capsule 100 14:00: First dose [place] mg 00 on [facility] [place] 02/21/21 Branch at 0800, Until Discontinu ed, Routine iopamidol 2020-04- No [id number] 100mL 100 mL, Univers (ISOVUE 04-23 Intravenou ity o f 370-500 mL) 10:00: 09:50 s, ONCE, 1 [place] injection 00 :00 dose, On Medica l 100 mL [place] Branch 02/21/21 at 0415, Routine KCL 2020-04 20meq 20 mEq, Univers (KLOR-CON 04-23 Oral, ity of M20) tablet 09:30: 10:10 ONCE, 1 [place] 20 mEq 00 :00 dose, On Medical [place] Branch 02/21/21 at 0330, Routine NaCl 0.9% 2020-04 Yes 1000mL at 42 Unive rs (NS) IV 1-22 mL/hr, IV ity of infusion 07:15: Infusion, [place] 1,000 mL 00 CONTINUOUS Medic al , Starting Branch on Sun02/21/21 at 0115, Until Discontinu ed, Routine HYDROcodone 2020-04 1{tbl} 1 tablet, Univers -acetaminop 04-23 Oral, ity of hen (NORCO 07:01: 17:40 Q6HPRN, [place] as 5) 5-325 mg 12 :05 Starting Medi nadiya tablet 1 on [place] Branch tablet 02/21/21 at 0101, Until Sun02/21/21 at 1140, Routine, Pain (scale 7-10) acetaminoph 2020-04 No 325mg 325 mg, U nivers en 04-23 Oral, ity of (TYLENOL) 07:01: 17:04 Q4HPRN, [place] tablet 325 10 :05 Starting Medic al mg on [place] Branch 02/21/21 at 0101, Until Sun02/21/21 at 1104, Routine, Pain (scale 4-6) acetaminoph 2020-04 Yes 325mg 325 mg, Un pat en 04-23 Oral, ity of (TYLENOL) 07:01: Q6HPRN, [place] tablet 325 09 Starting Medic al mg on Sun Branch 02/21/21 at 0101, Until Discontinu ed, Routine, Pain (scale 1-3) bisacodyL 2020-04 Yes 10mg 10 mg, Univer s (DULCOLAX) 04-23 Rectal, ity of suppository 06:59: QHSPRN, [place] as 10 mg 17 Starting Medical on [place] Branch 02/21/21 at 0059, Until Discontinu ed, Routine, Constipati on NaCl 0.9% 2020-04 Yes 5mL 5 mL, Slow Un pat (NS) 1- IV Push, ity of injection 5 06:59: PRN - SEE [place] mL 16 [facility] Medical NS, Branch Starting on Sun02/21/21 at 0059, Until Discontinu ed, 10 mL Gemfibrozil Gemfibrozil 1-0 No BID Gemfibrozi 600 MG 600 MG 8-05 l 600 MG 00:00: 00 Gemfibrozil Gemfibrozil 2021-0 No BID Gemfibrozi 600 MG 600 MG 8-05 l 600 MG 00:00: 00 Gemfibrozil Gemfibrozil 2021-0 No BID Gemfibrozi 600 MG 600 MG 8-05 l 600 MG 00:00: 00 Gemfibrozil Gemfibrozil 2021-0 No BID Gemfibrozi 600 MG 600 MG 8-05 l 600 MG 00:00: 00 Gemfibrozil Gemfibrozil 2021-0 No BID Gemfibrozi 600 MG 600 MG 8-05 l 600 MG 00:00: 00 Gemfibrozil Gemfibrozil 2021-0 No BID Gemfibrozi 600 MG 600 MG 8-05 l 600 MG 00:00: 00 Gemfibrozil Gemfibrozil 1-0 No BID Gemfibrozi 600 MG 600 MG 8-05 l 600 MG 00:00: 00 busPIRone busPIRone 1-0 No 1{table busPIRone HCl 7.5 MG HCl 7.5 MG 3-08 t} HCl 7.5 MG 00:00: 00 busPIRone busPIRone 1-0 No 1{table busPIRone HCl 7.5 MG HCl 7.5 MG 3-08 t} HCl 7.5 MG 00:00: 00 busPIRone busPIRone 1-0 No 1{table busPIRone HCl 7.5 MG HCl 7.5 MG 3-08 t} HCl 7.5 MG 00:00: 00 busPIRone busPIRone 1-0 No 1{table busPIRone HCl 7.5 MG HCl 7.5 MG 3-08 t} HCl 7.5 MG 00:00: 00 busPIRone busPIRone 2020-0 No 1{table busPIRone HCl 7.5 MG HCl 7.5 MG 3-08 t} HCl 7.5 MG 00:00: 00 busPIRone busPIRone 2020-0 No 1{table busPIRone HCl 7.5 MG HCl 7.5 MG 3-08 t} HCl 7.5 MG 00:00: 00 busPIRone busPIRone 2020-0 No 1{table busPIRone HCl 7.5 MG HCl 7.5 MG 3-08 t} HCl 7.5 MG 00:00: 00 busPIRone busPIRone 2020-0 No 1{table busPIRone HCl 7.5 MG HCl 7.5 MG 3-08 t} HCl 7.5 MG 00:00: 00 busPIRone busPIRone 2020-0 No 1{table busPIRone HCl 7.5 MG HCl 7.5 MG 3-08 t} HCl 7.5 MG 00:00: 00 Bupivicaine Bupivicaine 2020-0 No 4mL [place] 4[place]02 Spirit 00:00: - [facility] 00 [facility] Kenalog Kenalog 2020-0 No 40mg Common (Triamcinol (Triamcinol 4-02 S pirit one) one) 00:00: - [facility]I 00 [facility] Bupivicaine Bupivicaine 2020-0 No 4mL [place] 4[place]02 Spirit 00:00: - [facility]I 00 [facility] Kenalog Kenalog 2020-0 No 40mg Common (Triamcinol (Triamcinol 4-02 S pirit one) one) 00:00: - CHI 00 [facility] Bupivicaine Bupivicaine 2020-0 No 4mL [place] 4[place]02 Spirit 00:00: - CHI 00 [facility] Kenalog Kenalog 2020-0 No 40mg Common (Triamcinol (Triamcinol 4-02 S pirit one) one) 00:00: - CHI 00 [facility] Bupivicaine Bupivicaine 2020-0 No 4mL [place] 4[place]02 Spirit 00:00: - CHI 00 [facility] Kenalog Kenalog 2020-0 No 40mg Common (Triamcinol (Triamcinol 4-02 S pirit one) one) 00:00: - CHI 00 [facility] Bupivicaine Bupivicaine 2020-0 No 4mL [place] 4[place]02 Spirit 00:00: - CHI 00 [facility] Kenalog Kenalog 2020-0 No 40mg Common (Triamcinol (Triamcinol 4-02 S pirit one) one) 00:00: - CHI 00 [facility] Bupivicaine Bupivicaine 2020-0 No 4mL [place] 4[place]02 Spirit 00:00: - CHI 00 [facility] Kenalog Kenalog 2020-0 No 40mg Common (Triamcinol (Triamcinol 4-02 S pirit one) one) 00:00: - CHI 00 [facility] Bupivicaine Bupivicaine 2020-0 No 4mL [place] 4[place]02 Spirit 00:00: - CHI 00 [facility] Kenalog Kenalog 2020-0 No 40mg Common (Triamcinol (Triamcinol 4-02 S pirit one) one) 00:00: - CHI 00 [facility] Bupivicaine Bupivicaine 2020-0 No 4mL [place] 4[place]02 Spirit 00:00: - CHI 00 [facility] Kenalog Kenalog 2020-0 No 40mg Common (Triamcinol (Triamcinol 4-02 S pirit one) one) 00:00: - CHI 00 [facility] Bupivicaine Bupivicaine 2020-0 No 4mL [place] 4[place]02 Spirit 00:00: - CHI 00 [facility] Kenalog Kenalog 2020-0 No 40mg Common (Triamcinol (Triamcinol 4-02 S pirit one) one) 00:00: - CHI 00 [facility] Bupivicaine Bupivicaine 2020-0 No 4mL [place] 4[place]02 Spirit 00:00: - CHI 00 [facility] Kenalog Kenalog 2020-0 No 40mg Common (Triamcinol (Triamcinol 4-02 S pirit one) one) 00:00: - CHI 00 [facility] Bupivicaine Bupivicaine 2020-0 No 4mL [place] 4[place]02 Spirit 00:00: - CHI 00 [facility] Kenalog Kenalog 2020-0 No 40mg Common (Triamcinol (Triamcinol 4-02 S pirit one) one) 00:00: - CHI 00 [facility] Bupivicaine Bupivicaine 2020-0 No 4mL [place] 4[place]02 Spirit 00:00: - CHI 00 [facility] Kenalog Kenalog 2020-0 No 40mg Common (Triamcinol (Triamcinol 4-02 S pirit one) one) 00:00: - CHI 00 [facility] Bupivicaine Bupivicaine 2020-0 No 4mL [place] 4[place]02 Spirit 00:00: - CHI 00 [facility] Kenalog Kenalog 2020-0 No 40mg Common (Triamcinol (Triamcinol 4-02 S pirit one) one) 00:00: - CHI 00 [facility] Bupivicaine Bupivicaine 2020-0 No 4mL [place] 4[place]02 Spirit 00:00: - CHI 00 [facility] Kenalog Kenalog 2020-0 No 40mg Common (Triamcinol (Triamcinol 4-02 S pirit one) one) 00:00: - CHI 00 [facility] Bupivicaine Bupivicaine 2020-0 No 4mL [place] 4[place] Spirit 00:00: - CHI 00 [facility] Kenalog Kenalog 2020-0 No 40mg Common (Triamcinol (Triamcinol 4-02 S pirit one) one) 00:00: - CHI 00 [facility] Bupivicaine Bupivicaine 2020-0 No 4mL [place] 4[place]02 Spirit 00:00: - CHI 00 [facility] Kenalog Kenalog 2020-0 No 40mg Common (Triamcinol (Triamcinol 4-02 S pirit one) one) 00:00: - CHI 00 [facility] Amitriptyli Amitriptyli 2018- Yes Meliza 1 tablet Common ne HCl ne HCl 0-30 [place] at bedtime Spirit 00:00: as needed - [facility]I for St sleep/pain [facility] Crestor Crestor 2018- Yes [place] 1 tablet Co mmon 0-17 [place] Spirit 00:00: - [facility] Amlodipine Amlodipine Yes Meliza 1 tablet Common Besylate Besylate 7-11 [place] Sp iván 00:00: - [facility] Enalapril Enalapril Yes Meliza 1 tablet Common Maleate Maleate 7-03 [place] Spir it 00:00: - [facility] Fish Oil Fish Oil Yes Meliza 2 capsules Common [place] (OTC) [facility] Vitamin D Vitamin D Yes Meliza 2 tablets Common [place] (OTC) [facility] Rosuvastati Rosuvastati Yes Meliza not Common n Calcium n Calcium [place] defined [facility] Gabapentin Gabapentin Yes Meliza 1 capsule Common [place] as needed Spiri t for [facility] Enalapril Enalapril No 1{table Enalapril Maleate 20 Maleate 20 t} Maleate 20 MG MG MG Fenofibrate Fenofibrate No 1{capsu QD Fenofibrat 67 MG 67 MG le_with e 67 MG _a_meal } Fish Oil Fish Oil No QD Fish Oil Crestor 20 Crestor 20 No 1{table QD Crestor 20 MG MG t} MG Amitriptyli Amitriptyli No QD Amitriptyl ne HCl 25 ne HCl 25 ine HCl 25 MG MG MG Rosuvastati Rosuvastati No Rosuvastat n Calcium n Calcium in Calcium Ergocalcife Ergocalcife No 1{capsu Ergocalcif rol 1.25 MG rol 1.25 MG le} hansel 1.25 ( UT) ( UT) MG ( UT) Vitamin D Vitamin D No QD Vitamin D 50 MCG 50 MCG 50 MCG (1999 UT) (1999 UT) (1999 UT) amLODIPine amLODIPine No 1{table amLODIPine Besylate 10 Besylate 10 t} Besylate MG MG 10 MG Alendronate Alendronate No Alendronat Sodium 70 Sodium 70 e Sodium MG MG 70 MG Rosuvastati Rosuvastati No Rosuvastat n Calcium n Calcium in Calcium amLODIPine amLODIPine No 1{table amLODIPine Besylate 10 Besylate 10 t} Besylate MG MG 10 MG Fish Oil Fish Oil No QD Fish Oil Fenofibrate Fenofibrate No 1{capsu QD Fenofibrat 67 MG 67 MG le_with e 67 MG _a_meal } Ergocalcife Ergocalcife No 1{capsu Ergocalcif rol 1.25 MG rol 1.25 MG le} hansel 1.25 ( UT) ( UT) MG ( UT) Amitriptyli Amitriptyli No QD Amitriptyl ne HCl 25 ne HCl 25 ine HCl 25 MG MG MG Vitamin D Vitamin D No QD Vitamin D 50 MCG 50 MCG 50 MCG (1999 UT) (1999 UT) (1999) Enalapril Enalapril No 1{table Enalapril Maleate 20 Maleate 20 t} Maleate 20 MG MG MG Alendronate Alendronate No Alendronat Sodium 70 Sodium 70 e Sodium MG MG 70 MG Crestor 20 Crestor 20 No 1{table QD Crestor 20 MG MG t} MG Rosuvastati Rosuvastati No Rosuvastat n Calcium n Calcium in Calcium amLODIPine amLODIPine No 1{table amLODIPine Besylate 10 Besylate 10 t} Besylate MG MG 10 MG Fish Oil Fish Oil No QD Fish Oil Fenofibrate Fenofibrate No 1{capsu QD Fenofibrat 67 MG 67 MG le_with e 67 MG _a_meal } Ergocalcife Ergocalcife No 1{capsu Ergocalcif rol 1.25 MG rol 1.25 MG le} hansel 1.25 ( UT) ( UT) MG ( UT) Amitriptyli Amitriptyli No QD Amitriptyl ne HCl 25 ne HCl 25 ine HCl 25 MG MG MG Vitamin D Vitamin D No QD Vitamin D 50 MCG 50 MCG 50 MCG (1999 UT) (1999 UT) (1999 UT) Enalapril Enalapril No 1{table Enalapril Maleate 20 Maleate 20 t} Maleate 20 MG MG MG Alendronate Alendronate No Alendronat Sodium 70 Sodium 70 e Sodium MG MG 70 MG Crestor 20 Crestor 20 No 1{table QD Crestor 20 MG MG t} MG Rosuvastati Rosuvastati No Rosuvastat n Calcium n Calcium in Calcium amLODIPine amLODIPine No 1{table amLODIPine Besylate 10 Besylate 10 t} Besylate MG MG 10 MG Fish Oil Fish Oil No QD Fish Oil Fenofibrate Fenofibrate No 1{capsu QD Fenofibrat 67 MG 67 MG le_with e 67 MG _a_meal } Ergocalcife Ergocalcife No 1{capsu Ergocalcif rol 1.25 MG rol 1.25 MG le} hansel 1.25 ( UT) ( UT) MG ( UT) Amitriptyli Amitriptyli No QD Amitriptyl ne HCl 25 ne HCl 25 ine HCl 25 MG MG MG Vitamin D Vitamin D No QD Vitamin D 50 MCG 50 MCG 50 MCG (1999) (1999) (1999) Enalapril Enalapril No 1{table Enalapril Maleate 20 Maleate 20 t} Maleate 20 MG MG MG Alendronate Alendronate No Alendronat Sodium 70 Sodium 70 e Sodium MG MG 70 MG Crestor 20 Crestor 20 No 1{table QD Crestor 20 MG MG t} MG Vitamin D Vitamin D No QD Vitamin D 50 MCG 50 MCG 50 MCG (1999) (1999) (1999) Ergocalcife Ergocalcife No 1{capsu Ergocalcif rol 1.25 MG rol 1.25 MG le} hansel 1.25 ( UT) ( UT) MG ( UT) Crestor 20 Crestor 20 No 1{table QD Crestor 20 MG MG t} MG amLODIPine amLODIPine No 1{table amLODIPine Besylate 10 Besylate 10 t} Besylate MG MG 10 MG Rosuvastati Rosuvastati No Rosuvastat n Calcium n Calcium in Calcium Enalapril Enalapril No 1{table Enalapril Maleate 20 Maleate 20 t} Maleate 20 MG MG MG Fish Oil Fish Oil No QD Fish Oil Alendronate Alendronate No Alendronat Sodium 70 Sodium 70 e Sodium MG MG 70 MG Fenofibrate Fenofibrate No 1{capsu QD Fenofibrat 67 MG 67 MG le_with e 67 MG _a_meal } Amitriptyli Amitriptyli No QD Amitriptyl ne HCl 25 ne HCl 25 ine HCl 25 MG MG MG Vitamin D Vitamin D No QD Vitamin D 50 MCG 50 MCG 50 MCG (1999) (1999) (1999) Ergocalcife Ergocalcife No 1{capsu Ergocalcif rol 1.25 MG rol 1.25 MG le} hansel 1.25 ( UT) ( UT) MG ( UT) Crestor 20 Crestor 20 No 1{table QD Crestor 20 MG MG t} MG amLODIPine amLODIPine No 1{table amLODIPine Besylate 10 Besylate 10 t} Besylate MG MG 10 MG Rosuvastati Rosuvastati No Rosuvastat n Calcium n Calcium in Calcium Enalapril Enalapril No 1{table Enalapril Maleate 20 Maleate 20 t} Maleate 20 MG MG MG Fish Oil Fish Oil No QD Fish Oil Alendronate Alendronate No Alendronat Sodium 70 Sodium 70 e Sodium MG MG 70 MG Fenofibrate Fenofibrate No 1{capsu QD Fenofibrat 67 MG 67 MG le_with e 67 MG _a_meal } Amitriptyli Amitriptyli No QD Amitriptyl ne HCl 25 ne HCl 25 ine HCl 25 MG MG MG Ergocalcife Ergocalcife No 1{capsu Ergocalcif rol 1.25 MG rol 1.25 MG le} hansel 1.25 ( UT) ( UT) MG ( UT) Enalapril Enalapril No 1{table Enalapril Maleate 20 Maleate 20 t} Maleate 20 MG MG MG Alendronate Alendronate No Alendronat Sodium 70 Sodium 70 e Sodium MG MG 70 MG amLODIPine amLODIPine No 1{table amLODIPine Besylate 10 Besylate 10 t} Besylate MG MG 10 MG Fenofibrate Fenofibrate No 1{capsu QD Fenofibrat 67 MG 67 MG le_with e 67 MG _a_meal } Fish Oil Fish Oil No QD Fish Oil Amitriptyli Amitriptyli No QD Amitriptyl ne HCl 25 ne HCl 25 ine HCl 25 MG MG MG Vitamin D Vitamin D No QD Vitamin D 50 MCG 50 MCG 50 MCG (1999) (1999 UT) (1999 UT) Rosuvastati Rosuvastati No Rosuvastat n Calcium n Calcium in Calcium Crestor 20 Crestor 20 No 1{table QD Crestor 20 MG MG t} MG Gemfibrozil Gemfibrozil No BID Gemfibrozi 600 MG 600 MG l 600 MG Ergocalcife Ergocalcife No 1{capsu Ergocalcif rol 1.25 MG rol 1.25 MG le} hansel 1.25 ( UT) ( UT) MG ( UT) Enalapril Enalapril No 1{table Enalapril Maleate 20 Maleate 20 t} Maleate 20 MG MG MG Alendronate Alendronate No Alendronat Sodium 70 Sodium 70 e Sodium MG MG 70 MG Rosuvastati Rosuvastati No Rosuvastat n Calcium n Calcium in Calcium Vitamin D Vitamin D No QD Vitamin D 50 MCG 50 MCG 50 MCG (1999) (1999) (1999) Fenofibrate Fenofibrate No 1{capsu QD Fenofibrat 67 MG 67 MG le_with e 67 MG _a_meal } Amitriptyli Amitriptyli No QD Amitriptyl ne HCl 25 ne HCl 25 ine HCl 25 MG MG MG amLODIPine amLODIPine No 1{table amLODIPine Besylate 10 Besylate 10 t} Besylate MG MG 10 MG Fish Oil Fish Oil No QD Fish Oil Crestor 20 Crestor 20 No 1{table QD Crestor 20 MG MG t} MG Alendronate Alendronate No Alendronat Sodium 70 Sodium 70 e Sodium MG MG 70 MG Ergocalcife Ergocalcife No 1{capsu Ergocalcif rol 1.25 MG rol 1.25 MG le} hansel 1.25 ( UT) ( UT) MG ( UT) Fenofibrate Fenofibrate No 1{capsu QD Fenofibrat 67 MG 67 MG le_with e 67 MG _a_meal } Fish Oil Fish Oil No QD Fish Oil Amitriptyli Amitriptyli No QD Amitriptyl ne HCl 25 ne HCl 25 ine HCl 25 MG MG MG amLODIPine amLODIPine No 1{table amLODIPine Besylate 10 Besylate 10 t} Besylate MG MG 10 MG Rosuvastati Rosuvastati No Rosuvastat n Calcium n Calcium in Calcium Enalapril Enalapril No 1{table Enalapril Maleate 20 Maleate 20 t} Maleate 20 MG MG MG Vitamin D Vitamin D No QD Vitamin D 50 MCG 50 MCG 50 MCG (1999 UT) (1999) (1999) Crestor 20 Crestor 20 No 1{table QD Crestor 20 MG MG t} MG Gemfibrozil Gemfibrozil No BID Gemfibrozi 600 MG 600 MG l 600 MG busPIRone busPIRone No busPIRone HCl 7.5 MG HCl 7.5 MG HCl 7.5 MG Amitriptyli Amitriptyli No QD Amitriptyl ne HCl 25 ne HCl 25 ine HCl 25 MG MG MG Vitamin D Vitamin D No QD Vitamin D 50 MCG 50 MCG 50 MCG (1999) (1999) (1999) Fish Oil Fish Oil No QD Fish Oil amLODIPine amLODIPine No 1{table amLODIPine Besylate 10 Besylate 10 t} Besylate MG MG 10 MG Alendronate Alendronate No Alendronat Sodium 70 Sodium 70 e Sodium MG MG 70 MG Enalapril Enalapril No 1{table Enalapril Maleate 20 Maleate 20 t} Maleate 20 MG MG MG Fenofibrate Fenofibrate No 1{capsu QD Fenofibrat 67 MG 67 MG le_with e 67 MG _a_meal } Rosuvastati Rosuvastati No Rosuvastat n Calcium n Calcium in Calcium Crestor 20 Crestor 20 No 1{table QD Crestor 20 MG MG t} MG Ergocalcife Ergocalcife No 1{capsu Ergocalcif rol 1.25 MG rol 1.25 MG le} hansel 1.25 ( UT) ( UT) MG ( UT) Gemfibrozil Gemfibrozil No BID Gemfibrozi 600 MG 600 MG l 600 MG Gemfibrozil Gemfibrozil No BID Gemfibrozi 600 MG 600 MG l 600 MG Amitriptyli Amitriptyli No QD Amitriptyl ne HCl 25 ne HCl 25 ine HCl 25 MG MG MG Vitamin D Vitamin D No QD Vitamin D 50 MCG 50 MCG 50 MCG (1999) (1999) (1999 UT) Fish Oil Fish Oil No QD Fish Oil Ergocalcife Ergocalcife No 1{capsu Ergocalcif rol 1.25 MG rol 1.25 MG le} hansel 1.25 ( UT) ( UT) MG ( UT) Fenofibrate Fenofibrate No 1{capsu QD Fenofibrat 67 MG 67 MG le_with e 67 MG _a_meal } Enalapril Enalapril No 1{table Enalapril Maleate 20 Maleate 20 t} Maleate 20 MG MG MG Crestor 20 Crestor 20 No 1{table QD Crestor 20 MG MG t} MG Rosuvastati Rosuvastati No Rosuvastat n Calcium n Calcium in Calcium amLODIPine amLODIPine No 1{table amLODIPine Besylate 10 Besylate 10 t} Besylate MG MG 10 MG busPIRone busPIRone No busPIRone HCl 7.5 MG HCl 7.5 MG HCl 7.5 MG Alendronate Alendronate No Alendronat Sodium 70 Sodium 70 e Sodium MG MG 70 MG Gemfibrozil Gemfibrozil No BID Gemfibrozi 600 MG 600 MG l 600 MG Amitriptyli Amitriptyli No QD Amitriptyl ne HCl 25 ne HCl 25 ine HCl 25 MG MG MG Vitamin D Vitamin D No QD Vitamin D 50 MCG 50 MCG 50 MCG (1999) (1999) (1999) Fish Oil Fish Oil No QD Fish Oil Ergocalcife Ergocalcife No 1{capsu Ergocalcif rol 1.25 MG rol 1.25 MG le} hanesl 1.25 ( UT) ( UT) MG ( UT) busPIRone busPIRone No 1{table BID busPIRone HCl 7.5 MG HCl 7.5 MG t} HCl 7.5 MG Enalapril Enalapril No 1{table Enalapril Maleate 20 Maleate 20 t} Maleate 20 MG MG MG Crestor 20 Crestor 20 No 1{table QD Crestor 20 MG MG t} MG Rosuvastati Rosuvastati No Rosuvastat n Calcium n Calcium in Calcium amLODIPine amLODIPine No 1{table amLODIPine Besylate 10 Besylate 10 t} Besylate MG MG 10 MG Fenofibrate Fenofibrate No 1{capsu QD Fenofibrat 67 MG 67 MG le_with e 67 MG _a_meal } Alendronate Alendronate No Alendronat Sodium 70 Sodium 70 e Sodium MG MG 70 MG Fish Oil Fish Oil No QD Fish Oil Ergocalcife Ergocalcife No 1{capsu Ergocalcif rol 1.25 MG rol 1.25 MG le} hansel 1.25 (25529 UT) ( UT) MG ( UT) Fenofibrate Fenofibrate No 1{capsu QD Fenofibrat 67 MG 67 MG le_with e 67 MG _a_meal } Gemfibrozil Gemfibrozil No BID Gemfibrozi 600 MG 600 MG l 600 MG Amitriptyli Amitriptyli No QD Amitriptyl ne HCl 25 ne HCl 25 ine HCl 25 MG MG MG Rosuvastati Rosuvastati No Rosuvastat n Calcium n Calcium in Calcium Vitamin D Vitamin D No QD Vitamin D 50 MCG 50 MCG 50 MCG (1999 UT) (1999) (1999) Alendronate Alendronate No Alendronat Sodium 70 Sodium 70 e Sodium MG MG 70 MG Crestor 20 Crestor 20 No 1{table QD Crestor 20 MG MG t} MG amLODIPine amLODIPine No 1{table amLODIPine Besylate 10 Besylate 10 t} Besylate MG MG 10 MG Enalapril Enalapril No 1{table Enalapril Maleate 20 Maleate 20 t} Maleate 20 MG MG MG busPIRone busPIRone No 1{table BID busPIRone HCl 7.5 MG HCl 7.5 MG t} HCl 7.5 MG Fish Oil Fish Oil No QD Fish Oil Ergocalcife Ergocalcife No 1{capsu Ergocalcif rol 1.25 MG rol 1.25 MG le} hansel 1.25 (19657 UT) ( UT) MG ( UT) Fenofibrate Fenofibrate No 1{capsu QD Fenofibrat 67 MG 67 MG le_with e 67 MG _a_meal } Gemfibrozil Gemfibrozil No BID Gemfibrozi 600 MG 600 MG l 600 MG Amitriptyli Amitriptyli No QD Amitriptyl ne HCl 25 ne HCl 25 ine HCl 25 MG MG MG Rosuvastati Rosuvastati No Rosuvastat n Calcium n Calcium in Calcium Vitamin D Vitamin D No QD Vitamin D 50 MCG 50 MCG 50 MCG (1999 UT) (1999 UT) (1999) Alendronate Alendronate No Alendronat Sodium 70 Sodium 70 e Sodium MG MG 70 MG Crestor 20 Crestor 20 No 1{table QD Crestor 20 MG MG t} MG amLODIPine amLODIPine No 1{table amLODIPine Besylate 10 Besylate 10 t} Besylate MG MG 10 MG Enalapril Enalapril No 1{table Enalapril Maleate 20 Maleate 20 t} Maleate 20 MG MG MG busPIRone busPIRone No 1{table BID busPIRone HCl 7.5 MG HCl 7.5 MG t} HCl 7.5 MG Fish Oil Fish Oil No QD Fish Oil Ergocalcife Ergocalcife No 1{capsu Ergocalcif rol 1.25 MG rol 1.25 MG le} hansel 1.25 ( UT) ( UT) MG ( UT) Fenofibrate Fenofibrate No 1{capsu QD Fenofibrat 67 MG 67 MG le_with e 67 MG _a_meal } Gemfibrozil Gemfibrozil No BID Gemfibrozi 600 MG 600 MG l 600 MG Amitriptyli Amitriptyli No QD Amitriptyl ne HCl 25 ne HCl 25 ine HCl 25 MG MG MG Rosuvastati Rosuvastati No Rosuvastat n Calcium n Calcium in Calcium Vitamin D Vitamin D No QD Vitamin D 50 MCG 50 MCG 50 MCG (1999 UT) (1999 UT) (1999 UT) Alendronate Alendronate No Alendronat Sodium 70 Sodium 70 e Sodium MG MG 70 MG Crestor 20 Crestor 20 No 1{table QD Crestor 20 MG MG t} MG amLODIPine amLODIPine No 1{table amLODIPine Besylate 10 Besylate 10 t} Besylate MG MG 10 MG Enalapril Enalapril No 1{table Enalapril Maleate 20 Maleate 20 t} Maleate 20 MG MG MG busPIRone busPIRone No 1{table BID busPIRone HCl 7.5 MG HCl 7.5 MG t} HCl 7.5 MG Rosuvastati Rosuvastati No Rosuvastat n Calcium n Calcium in Calcium Ergocalcife Ergocalcife No 1{capsu Ergocalcif rol 1.25 MG rol 1.25 MG le} hansel 1.25 ( UT) ( UT) MG ( UT) Alendronate Alendronate No Alendronat Sodium 70 Sodium 70 e Sodium MG MG 70 MG Sertraline Sertraline No 1{table QD Sertraline HCl 50 MG HCl 50 MG t} HCl 50 MG amLODIPine amLODIPine No 1{table amLODIPine Besylate 10 Besylate 10 t} Besylate MG MG 10 MG busPIRone busPIRone No 1{table BID busPIRone HCl 7.5 MG HCl 7.5 MG t} HCl 7.5 MG Vitamin D Vitamin D No QD Vitamin D 50 MCG 50 MCG 50 MCG (1999 UT) (1999) (1999) Crestor 20 Crestor 20 No 1{table QD Crestor 20 MG MG t} MG Enalapril Enalapril No 1{table Enalapril Maleate 20 Maleate 20 t} Maleate 20 MG MG MG Amitriptyli Amitriptyli No QD Amitriptyl ne HCl 25 ne HCl 25 ine HCl 25 MG MG MG Gemfibrozil Gemfibrozil No BID Gemfibrozi 600 MG 600 MG l 600 MG Fenofibrate Fenofibrate No 1{capsu QD Fenofibrat 67 MG 67 MG le_with e 67 MG _a_meal } Fish Oil Fish Oil No QD Fish Oil Sertraline Sertraline No 1{table QD Sertraline HCl 50 MG HCl 50 MG t} HCl 50 MG Fish Oil Fish Oil No QD Fish Oil Ergocalcife Ergocalcife No 1{capsu Ergocalcif rol 1.25 MG rol 1.25 MG le} hansel 1.25 ( UT) ( UT) MG ( UT) Crestor 20 Crestor 20 No 1{table QD Crestor 20 MG MG t} MG Alendronate Alendronate No Alendronat Sodium 70 Sodium 70 e Sodium MG MG 70 MG busPIRone busPIRone No busPIRone HCl 7.5 MG HCl 7.5 MG HCl 7.5 MG amLODIPine amLODIPine No amLODIPine Besylate 10 Besylate 10 Besylate MG MG 10 MG Amitriptyli Amitriptyli No QD Amitriptyl ne HCl 25 ne HCl 25 ine HCl 25 MG MG MG Enalapril Enalapril No Enalapril Maleate 20 Maleate 20 Maleate 20 MG MG MG Vitamin D Vitamin D No QD Vitamin D 50 MCG 50 MCG 50 MCG (1999) (1999) (1999) Gemfibrozil Gemfibrozil No Gemfibrozi 600 MG 600 MG l 600 MG Fenofibrate Fenofibrate No 1{capsu QD Fenofibrat 67 MG 67 MG le_with e 67 MG _a_meal } Rosuvastati Rosuvastati No Rosuvastat n Calcium n Calcium in Calcium Sertraline Sertraline No 1{table QD Sertraline HCl 50 MG HCl 50 MG t} HCl 50 MG Fish Oil Fish Oil No QD Fish Oil Ergocalcife Ergocalcife No 1{capsu Ergocalcif rol 1.25 MG rol 1.25 MG le} hansel 1.25 ( UT) ( UT) MG () Crestor 20 Crestor 20 No 1{table QD Crestor 20 MG MG t} MG Alendronate Alendronate No Alendronat Sodium 70 Sodium 70 e Sodium MG MG 70 MG busPIRone busPIRone No busPIRone HCl 7.5 MG HCl 7.5 MG HCl 7.5 MG amLODIPine amLODIPine No amLODIPine Besylate 10 Besylate 10 Besylate MG MG 10 MG Amitriptyli Amitriptyli No QD Amitriptyl ne HCl 25 ne HCl 25 ine HCl 25 MG MG MG Enalapril Enalapril No Enalapril Maleate 20 Maleate 20 Maleate 20 MG MG MG Vitamin D Vitamin D No QD Vitamin D 50 MCG 50 MCG 50 MCG (1999) (1999) (1999) Gemfibrozil Gemfibrozil No Gemfibrozi 600 MG 600 MG l 600 MG Fenofibrate Fenofibrate No 1{capsu QD Fenofibrat 67 MG 67 MG le_with e 67 MG _a_meal } Rosuvastati Rosuvastati No Rosuvastat n Calcium n Calcium in Calcium Amitriptyli Amitriptyli No QD Amitriptyl ne HCl 25 ne HCl 25 ine HCl 25 MG MG MG Vitamin D Vitamin D No QD Vitamin D 50 MCG 50 MCG 50 MCG (1999) (1999) (1999) Alendronate Alendronate No Alendronat Sodium 70 Sodium 70 e Sodium MG MG 70 MG Sertraline Sertraline No Sertraline HCl 50 MG HCl 50 MG HCl 50 MG Rosuvastati Rosuvastati No Rosuvastat n Calcium n Calcium in Calcium Enalapril Enalapril No Enalapril Maleate 20 Maleate 20 Maleate 20 MG MG MG busPIRone busPIRone No busPIRone HCl 7.5 MG HCl 7.5 MG HCl 7.5 MG Fenofibrate Fenofibrate No 1{capsu QD Fenofibrat 67 MG 67 MG le_with e 67 MG _a_meal } Gemfibrozil Gemfibrozil No Gemfibrozi 600 MG 600 MG l 600 MG Crestor 20 Crestor 20 No 1{table QD Crestor 20 MG MG t} MG amLODIPine amLODIPine No amLODIPine Besylate 10 Besylate 10 Besylate MG MG 10 MG Ergocalcife Ergocalcife No 1{capsu Ergocalcif rol 1.25 MG rol 1.25 MG le} hansel 1.25 ( UT) ( UT) MG ( UT) Fish Oil Fish Oil No QD Fish Oil Amitriptyli Amitriptyli No QD Amitriptyl ne HCl 25 ne HCl 25 ine HCl 25 MG MG MG Vitamin D Vitamin D No QD Vitamin D 50 MCG 50 MCG 50 MCG (1999 UT) (1999) (1999) Alendronate Alendronate No Alendronat Sodium 70 Sodium 70 e Sodium MG MG 70 MG Sertraline Sertraline No Sertraline HCl 50 MG HCl 50 MG HCl 50 MG Rosuvastati Rosuvastati No Rosuvastat n Calcium n Calcium in Calcium Enalapril Enalapril No Enalapril Maleate 20 Maleate 20 Maleate 20 MG MG MG busPIRone busPIRone No busPIRone HCl 7.5 MG HCl 7.5 MG HCl 7.5 MG Fenofibrate Fenofibrate No 1{capsu QD Fenofibrat 67 MG 67 MG le_with e 67 MG _a_meal } Gemfibrozil Gemfibrozil No Gemfibrozi 600 MG 600 MG l 600 MG Crestor 20 Crestor 20 No 1{table QD Crestor 20 MG MG t} MG amLODIPine amLODIPine No amLODIPine Besylate 10 Besylate 10 Besylate MG MG 10 MG Ergocalcife Ergocalcife No 1{capsu Ergocalcif rol 1.25 MG rol 1.25 MG le} hansel 1.25 ( UT) (30749 UT) MG (79555 UT) Fish Oil Fish Oil No QD Fish Oil Alendronate Alendronate No Alendronat Sodium 70 Sodium 70 e Sodium MG MG 70 MG Sertraline Sertraline No 1{table QD Sertraline HCl 50 MG HCl 50 MG t} HCl 50 MG Amitriptyli Amitriptyli No QD Amitriptyl ne HCl 25 ne HCl 25 ine HCl 25 MG MG MG amLODIPine amLODIPine No 1{table amLODIPine Besylate 10 Besylate 10 t} Besylate MG MG 10 MG Gemfibrozil Gemfibrozil No BID Gemfibrozi 600 MG 600 MG l 600 MG amLODIPine amLODIPine No amLODIPine Besylate 10 Besylate 10 Besylate MG MG 10 MG Rosuvastati Rosuvastati No 1{table QD Rosuvastat n Calcium n Calcium t} in Calcium 20 MG 20 MG 20 MG Enalapril Enalapril No Enalapril Maleate 20 Maleate 20 Maleate 20 MG MG MG busPIRone busPIRone No busPIRone HCl 7.5 MG HCl 7.5 MG HCl 7.5 MG Vitamin D3 Vitamin D3 No 1{table QD Vitamin D3 125 MCG 125 MCG t} 125 MCG (5000 UT) (5000 UT) (5000 UT) Fenofibrate Fenofibrate No 1{capsu QD Fenofibrat 67 MG 67 MG le_with e 67 MG _a_meal } Alendronate Alendronate No Alendronat Sodium 70 Sodium 70 e Sodium MG MG 70 MG Sertraline Sertraline No 1{table QD Sertraline HCl 50 MG HCl 50 MG t} HCl 50 MG Amitriptyli Amitriptyli No QD Amitriptyl ne HCl 25 ne HCl 25 ine HCl 25 MG MG MG amLODIPine amLODIPine No 1{table amLODIPine Besylate 10 Besylate 10 t} Besylate MG MG 10 MG Gemfibrozil Gemfibrozil No BID Gemfibrozi 600 MG 600 MG l 600 MG amLODIPine amLODIPine No amLODIPine Besylate 10 Besylate 10 Besylate MG MG 10 MG Rosuvastati Rosuvastati No 1{table QD Rosuvastat n Calcium n Calcium t} in Calcium 20 MG 20 MG 20 MG Enalapril Enalapril No Enalapril Maleate 20 Maleate 20 Maleate 20 MG MG MG busPIRone busPIRone No busPIRone HCl 7.5 MG HCl 7.5 MG HCl 7.5 MG Vitamin D3 Vitamin D3 No 1{table QD Vitamin D3 125 MCG 125 MCG t} 125 MCG (5000 UT) (5000 UT) (5000 UT) Fenofibrate Fenofibrate No 1{capsu QD Fenofibrat 67 MG 67 MG le_with e 67 MG _a_meal } Alendronate Alendronate No Alendronat Sodium 70 Sodium 70 e Sodium MG MG 70 MG Sertraline Sertraline No 1{table QD Sertraline HCl 50 MG HCl 50 MG t} HCl 50 MG Amitriptyli Amitriptyli No QD Amitriptyl ne HCl 25 ne HCl 25 ine HCl 25 MG MG MG amLODIPine amLODIPine No 1{table amLODIPine Besylate 10 Besylate 10 t} Besylate MG MG 10 MG Gemfibrozil Gemfibrozil No BID Gemfibrozi 600 MG 600 MG l 600 MG amLODIPine amLODIPine No amLODIPine Besylate 10 Besylate 10 Besylate MG MG 10 MG Rosuvastati Rosuvastati No 1{table QD Rosuvastat n Calcium n Calcium t} in Calcium 20 MG 20 MG 20 MG Enalapril Enalapril No Enalapril Maleate 20 Maleate 20 Maleate 20 MG MG MG busPIRone busPIRone No busPIRone HCl 7.5 MG HCl 7.5 MG HCl 7.5 MG Vitamin D3 Vitamin D3 No 1{table QD Vitamin D3 125 MCG 125 MCG t} 125 MCG (5000 UT) (5000 UT) (5000 UT) Fenofibrate Fenofibrate No 1{capsu QD Fenofibrat 67 MG 67 MG le_with e 67 MG _a_meal } Alendronate Alendronate No Alendronat Sodium 70 Sodium 70 e Sodium MG MG 70 MG Sertraline Sertraline No 1{table QD Sertraline HCl 50 MG HCl 50 MG t} HCl 50 MG Amitriptyli Amitriptyli No QD Amitriptyl ne HCl 25 ne HCl 25 ine HCl 25 MG MG MG amLODIPine amLODIPine No 1{table amLODIPine Besylate 10 Besylate 10 t} Besylate MG MG 10 MG Gemfibrozil Gemfibrozil No BID Gemfibrozi 600 MG 600 MG l 600 MG amLODIPine amLODIPine No amLODIPine Besylate 10 Besylate 10 Besylate MG MG 10 MG Rosuvastati Rosuvastati No 1{table QD Rosuvastat n Calcium n Calcium t} in Calcium 20 MG 20 MG 20 MG Enalapril Enalapril No Enalapril Maleate 20 Maleate 20 Maleate 20 MG MG MG busPIRone busPIRone No busPIRone HCl 7.5 MG HCl 7.5 MG HCl 7.5 MG Vitamin D3 Vitamin D3 No 1{table QD Vitamin D3 125 MCG 125 MCG t} 125 MCG (5000 UT) (5000 UT) (5000 UT) Fenofibrate Fenofibrate No 1{capsu QD Fenofibrat 67 MG 67 MG le_with e 67 MG _a_meal } Alendronate Alendronate No Alendronat Sodium 70 Sodium 70 e Sodium MG MG 70 MG Sertraline Sertraline No 1{table QD Sertraline HCl 50 MG HCl 50 MG t} HCl 50 MG Amitriptyli Amitriptyli No QD Amitriptyl ne HCl 25 ne HCl 25 ine HCl 25 MG MG MG amLODIPine amLODIPine No 1{table amLODIPine Besylate 10 Besylate 10 t} Besylate MG MG 10 MG Gemfibrozil Gemfibrozil No BID Gemfibrozi 600 MG 600 MG l 600 MG amLODIPine amLODIPine No amLODIPine Besylate 10 Besylate 10 Besylate MG MG 10 MG Rosuvastati Rosuvastati No 1{table QD Rosuvastat n Calcium n Calcium t} in Calcium 20 MG 20 MG 20 MG Enalapril Enalapril No Enalapril Maleate 20 Maleate 20 Maleate 20 MG MG MG busPIRone busPIRone No busPIRone HCl 7.5 MG HCl 7.5 MG HCl 7.5 MG Vitamin D3 Vitamin D3 No 1{table QD Vitamin D3 125 MCG 125 MCG t} 125 MCG (5000 UT) (5000 UT) (5000 UT) Fenofibrate Fenofibrate No 1{capsu QD Fenofibrat 67 MG 67 MG le_with e 67 MG _a_meal } Vitamin D3 Vitamin D3 No 1{table QD Vitamin D3 125 MCG 125 MCG t} 125 MCG (5000 UT) (5000 UT) (5000 UT) HYDROcodone HYDROcodone No 1{table QID HYDROcodon -Acetaminop -Acetaminop t_as_ne e-Acetamin hen 5-325 hen 5-325 eded} ophen MG MG 5-325 MG Amitriptyli Amitriptyli No QD Amitriptyl ne HCl 25 ne HCl 25 ine HCl 25 MG MG MG Enalapril Enalapril No Enalapril Maleate 20 Maleate 20 Maleate 20 MG MG MG Sertraline Sertraline No 1{table QD Sertraline HCl 100 MG HCl 100 MG t} HCl 100 MG amLODIPine amLODIPine No 1{table amLODIPine Besylate 10 Besylate 10 t} Besylate MG MG 10 MG Alendronate Alendronate No Alendronat Sodium 70 Sodium 70 e Sodium MG MG 70 MG busPIRone busPIRone No BID busPIRone HCl 7.5 MG HCl 7.5 MG HCl 7.5 MG Alendronate Alendronate Meliza 1 tablet [facility] Sodium Sodium 04-12 [facility] 30 minutes [facility] 00:00 before the - [facility] :00 first [facility] or [place] [facility] of the day with plain water Immunizations Ordered Filled Immunization Date Status Comments Sourc e Immunization Name Name FLUZONE HIGH DOSE FLUZONE HIGH DOSE 2022-07-07 Completed [facility] - OVER 65 OVER 65 13:48:00 [facility] Fluzone Fluzone 2021-03-04 Completed [facility] - 16:03:00 [facility] Fluzone Fluzone 2021-03-04 Completed [facility] - 16:03:00 [facility] Fluzone Fluzone 2021-03-04 Completed [facility] - 16:03:00 [facility] Fluzone Fluzone 2021-03-04 Completed [facility] - 16:03:00 [facility] Fluzone Fluzone 2021-03-04 Completed [facility] - 16:03:00 [facility] Fluzone Fluzone 2021-03-04 Completed [facility] - 16:03:00 [facility] Fluzone Fluzone 2021-03-04 Completed [facility] - 16:03:00 [facility] Fluzone Fluzone 2021-03-04 Completed [facility] - 16:03:00 [facility] Fluzone Fluzone 2021-03-04 Completed [facility] - 16:03:00 [facility] Fluzone Fluzone 2021-03-04 Completed [facility] - 16:03:00 [facility] Fluzone Fluzone 2021-03-04 Completed [facility] - 16:03:00 [facility] Fluzone Fluzone 2021-03-04 Completed [facility] - 16:03:00 [facility] Fluzone Fluzone 2021-03-04 Completed [facility] - 16:03:00 [facility] Fluzone Fluzone 2021-03-04 Completed [facility] - 16:03:00 [facility] Fluzone Fluzone 2021-03-04 Completed [facility] - 16:03:00 [facility] Fluzone Fluzone 2021-03-04 Completed [facility] - 16:03:00 [facility] Fluzone Fluzone 2021-03-04 Completed [facility] - 16:03:00 [facility] Fluzone Fluzone 2021-03-04 Completed [facility] - 16:03:00 [facility] Fluzone Fluzone 2021-03-04 Completed [facility] - 16:03:00 [facility] Fluzone Fluzone 2021-03-04 Completed [facility] - 16:03:00 [facility] Fluzone Fluzone 2021-03-04 Completed [facility] - 16:03:00 [facility] Fluzone Fluzone 2021-03-04 Completed [facility] - 16:03:00 [facility] Adacel (Tdap) Adacel (Tdap) 2020-03-01 [facility] 09:04:00 [facility] Adacel (Tdap) Adacel (Tdap) 2020-03-01 [facility] 09:04:00 [facility] Adacel (Tdap) Adacel (Tdap) 2020-03-01 [facility]pleted [facility] 09:04:00 [facility] Adacel (Tdap) Adacel (Tdap) 2020-03-01 [facility] 09:04:00 [facility] Adacel (Tdap) Adacel (Tdap) 2020-03-01 [facility] 09:04:00 [facility] Adacel (Tdap) Adacel (Tdap) 2020-03-01 [facility] 09:04:00 [facility] Adacel (Tdap) Adacel (Tdap) 2020-03-01 [facility] 09:04:00 [facility] Adacel (Tdap) Adacel (Tdap) 2020-03-01 [facility] 09:04:00 [facility] Adacel (Tdap) Adacel (Tdap) 2020-03-01 [facility] 09:04:00 [facility] Adacel (Tdap) Adacel (Tdap) 2020-03-01 [facility] 09:04:00 [facility] Adacel (Tdap) Adacel (Tdap) 2020-03-01 [facility] 09:04:00 [facility] Adacel (Tdap) Adacel (Tdap) 2020-03-01 [facility] 09:04:00 [facility] Adacel (Tdap) Adacel (Tdap) 2020-03-01 [facility] 09:04:00 [facility] Adacel (Tdap) Adacel (Tdap) 2020-03-01 [facility] 09:04:00 [facility] Adacel (Tdap) Adacel (Tdap) 2020-03-01 [facility] 09:04:00 [facility] Adacel (Tdap) Adacel (Tdap) 2020-03-01 [facility]pleted [facility] 09:04:00 [facility] Adacel (Tdap) Adacel (Tdap) 2020-03-01 [facility]pleted [facility] 09:04:00 [facility] Adacel (Tdap) Adacel (Tdap) 2020-03-01 [facility]pleted [facility] 09:04:00 [facility] Adacel (Tdap) Adacel (Tdap) 2020-03-01 [facility]pleted [facility] 09:04:00 [facility] Adacel (Tdap) Adacel (Tdap) 2020-03-01 [facility] 09:04:00 [facility] Adacel (Tdap) Adacel (Tdap) 2020-03-01 [facility] 09:04:00 [facility] Adacel (Tdap) Adacel (Tdap) 2020-03-01 [facility] 09:04:00 [facility] Adacel (Tdap) Adacel (Tdap) 2020-03-01 [facility] 09:04:00 [facility] Adacel (Tdap) Adacel (Tdap) 2020-03-01 [facility] 09:04:00 [facility] Adacel (Tdap) Adacel (Tdap) 2020-03-01 [facility] 09:04:00 [facility] Adacel (Tdap) Adacel (Tdap) 2020-03-01 [facility] 09:04:00 [facility] Pneumovax (PPSV23) Pneumovax (PPSV23) 2020-02-13 [facility]pleted [facility] - 15:45:00 [facility] Pneumovax (PPSV23) Pneumovax (PPSV23) 2020-02-13 Completed [facility] - 15:45:00 [facility] Pneumovax (PPSV23) Pneumovax (PPSV23) 2020-02-13 Completed [facility] - 15:45:00 [facility] Pneumovax (PPSV23) Pneumovax (PPSV23) 2020-02-13 Completed [facility] - 15:45:00 [facility] Pneumovax (PPSV23) Pneumovax (PPSV23) 2020-02-13 Completed [facility] - 15:45:00 [facility] Pneumovax (PPSV23) Pneumovax (PPSV23) 2020-02-13 Completed [facility] - 15:45:00 [facility] Pneumovax (PPSV23) Pneumovax (PPSV23) 2020-02-13 Completed [facility] - 15:45:00 [facility] Pneumovax (PPSV23) Pneumovax (PPSV23) 2020-02-13 Completed [facility] - 15:45:00 [facility] Pneumovax (PPSV23) Pneumovax (PPSV23) 2020-02-13 Completed [facility] - 15:45:00 [facility] Pneumovax (PPSV23) Pneumovax (PPSV23) 2020-02-13 Completed [facility] - 15:45:00 [facility] Pneumovax (PPSV23) Pneumovax (PPSV23) 2020-02-13 Completed [facility] - 15:45:00 [facility] Pneumovax (PPSV23) Pneumovax (PPSV23) 2020-02-13 Completed [facility] - 15:45:00 [facility] Pneumovax (PPSV23) Pneumovax (PPSV23) 2020-02-13 Completed [facility] - 15:45:00 [facility] Pneumovax (PPSV23) Pneumovax (PPSV23) 2020-02-13 Completed [facility] - 15:45:00 [facility] Pneumovax (PPSV23) Pneumovax (PPSV23) 2020-02-13 Completed [facility] - 15:45:00 [facility] Pneumovax (PPSV23) Pneumovax (PPSV23) 2020-02-13 Completed [facility] - 15:45:00 [facility] Pneumovax (PPSV23) Pneumovax (PPSV23) 2020-02-13 Completed [facility] - 15:45:00 [facility] Pneumovax (PPSV23) Pneumovax (PPSV23) 2020-02-13 Completed [facility] - 15:45:00 [facility] Pneumovax (PPSV23) Pneumovax (PPSV23) 2020-02-13 Completed [facility] - 15:45:00 [facility] Pneumovax (PPSV23) Pneumovax (PPSV23) 2020-02-13 Completed [facility] - 15:45:00 [facility] Pneumovax (PPSV23) Pneumovax (PPSV23) 2020-02-13 Completed [facility] - 15:45:00 [facility] Pneumovax (PPSV23) Pneumovax (PPSV23) 2020-02-13 Completed [facility] - 15:45:00 [facility] Pneumovax (PPSV23) Pneumovax (PPSV23) 2020-02-13 Completed [facility] - 15:45:00 [facility] Pneumovax (PPSV23) Pneumovax (PPSV23) 2020-02-13 Completed [facility] - 15:45:00 [facility] Pneumovax (PPSV23) Pneumovax (PPSV23) 2020-02-13 Completed [facility] - 15:45:00 [facility] Pneumovax (PPSV23) Pneumovax (PPSV23) 2020-02-13 Completed [facility] - 15:45:00 [facility] FluAD FluAD 2020-02-13 Completed [facility] - 15:42:00 [facility] FluAD FluAD 2020-02-13 Completed [facility] - 15:42:00 [facility] FluAD FluAD 2020-02-13 Completed [facility] - 15:42:00 [facility] FluAD FluAD 2020-02-13 Completed [facility] - 15:42:00 [facility] FluAD FluAD 2020-02-13 Completed [facility] - 15:42:00 [facility] FluAD FluAD 2020-02-13 Completed [facility] - 15:42:00 [facility] FluAD FluAD 2020-02-13 Completed [facility] - 15:42:00 [facility] FluAD FluAD 2020-02-13 Completed [facility] - 15:42:00 [facility] FluAD FluAD 2020-02-13 Completed [facility] - 15:42:00 [facility] FluAD FluAD 2020-02-13 Completed [facility] - 15:42:00 [facility] FluAD FluAD 2020-02-13 Completed [facility] - 15:42:00 [facility] FluAD FluAD 2020-02-13 Completed [facility] - 15:42:00 [facility] FluAD FluAD 2020-02-13 Completed [facility] - 15:42:00 [facility] FluAD FluAD 2020-02-13 Completed [facility] - 15:42:00 [facility] FluAD FluAD 2020-02-13 Completed [facility] - 15:42:00 [facility] FluAD FluAD 2020-02-13 Completed [facility] - 15:42:00 [facility] FluAD FluAD 2020-02-13 Completed [facility] - 15:42:00 [facility] FluAD FluAD 2020-02-13 Completed [facility] - 15:42:00 [facility] FluAD FluAD 2020-02-13 Completed [facility] - 15:42:00 [facility] FluAD FluAD 2020-02-13 Completed [facility] - 15:42:00 [facility] FluAD FluAD 2020-02-13 Completed [facility] - 15:42:00 [facility] FluAD FluAD 2020-02-13 Completed [facility] - 15:42:00 [facility] FluAD FluAD 2020-02-13 Completed [facility] - 15:42:00 [facility] FluAD FluAD 2020-02-13 Completed [facility] - 15:42:00 [facility] FluAD FluAD 2020-02-13 Completed [facility] - 15:42:00 [facility] FluAD FluAD 2020-02-13 Completed [facility] - 15:42:00 [facility] Pneumococcal 13 2020-02-01 Completed [facility] PCV13 00:00:00 [place] [facility] (Prevnar 13) [facility] Pneumococcal 13 2020-02-01 Completed [facility] Conjugate, PCV13 00:00:00 [place] [facility] (Prevnar 13) [facility] Pneumococcal 13 2020-02-01 Completed [facility] Conjugate, PCV13 00:00:00 [place] [facility] (Prevnar 13) [facility] Pneumococcal 13 2020-02-01 Completed [facility] Conjugate, PCV13 00:00:00 [place] [facility] (Prevnar 13) [facility] Pneumococcal 13 2020-02-01 Completed [facility] Conjugate, PCV13 00:00:00 [place] [facility] (Prevnar 13) [facility] Bupivicaine [place] Bupivicaine [place] 2019-07-03 Completed [facility] - 15:06:00 [facility] Kenalog Kenalog 2019-07-03 Completed [facility] - (Triamcinolone) (Triamcinolone) 15:05:00 [facility] FLUZONE HIGH DOSE FLUZONE HIGH DOSE 2019-01-29 Completed [facility] - OVER 65 OVER 65 08:59:00 [facility] FLUZONE HIGH DOSE FLUZONE HIGH DOSE 2019-01-29 Completed [facility] - OVER 65 OVER 65 08:59:00 [facility] FLUZONE HIGH DOSE FLUZONE HIGH DOSE 2019-01-29 Completed [facility] - OVER 65 OVER 65 08:59:00 [facility] FLUZONE HIGH DOSE FLUZONE HIGH DOSE 2019-01-29 Completed [facility] - OVER 65 OVER 65 08:59:00 [facility] FLUZONE HIGH DOSE FLUZONE HIGH DOSE 2019-01-29 Completed [facility] - OVER 65 OVER 65 08:59:00 [facility] FLUZONE HIGH DOSE FLUZONE HIGH DOSE 2019-01-29 Completed [facility] - OVER 65 OVER 65 08:59:00 [facility] FLUZONE HIGH DOSE FLUZONE HIGH DOSE 2019-01-29 Completed [facility] - OVER 65 OVER 65 08:59:00 [facility] FLUZONE HIGH DOSE FLUZONE HIGH DOSE 2019-01-29 Completed [facility] - OVER 65 OVER 65 08:59:00 [facility] FLUZONE HIGH DOSE FLUZONE HIGH DOSE 2019-01-29 Completed [facility] - OVER 65 OVER 65 08:59:00 [facility] FLUZONE HIGH DOSE FLUZONE HIGH DOSE 2019-01-29 Completed [facility] - OVER 65 OVER 65 08:59:00 [facility] FLUZONE HIGH DOSE FLUZONE HIGH DOSE 2019-01-29 Completed [facility] - OVER 65 OVER 65 08:59:00 [facility] FLUZONE HIGH DOSE FLUZONE HIGH DOSE 2019-01-29 Completed [facility] - OVER 65 OVER 65 08:59:00 [facility] FLUZONE HIGH DOSE FLUZONE HIGH DOSE 2019-01-29 Completed [facility] - OVER 65 OVER 65 08:59:00 [facility] FLUZONE HIGH DOSE FLUZONE HIGH DOSE 2019-01-29 Completed [facility] - OVER 65 OVER 65 08:59:00 [facility] FLUZONE HIGH DOSE FLUZONE HIGH DOSE 2019-01-29 Completed [facility] - OVER 65 OVER 65 08:59:00 [facility] FLUZONE HIGH DOSE FLUZONE HIGH DOSE 2019-01-29 Completed [facility] - OVER 65 OVER 65 08:59:00 [facility] FLUZONE HIGH DOSE FLUZONE HIGH DOSE 2019-01-29 Completed [facility] - OVER 65 OVER 65 08:59:00 [facility] FLUZONE HIGH DOSE FLUZONE HIGH DOSE 2019-01-29 Completed [facility] - OVER 65 OVER 65 08:59:00 [facility] FLUZONE HIGH DOSE FLUZONE HIGH DOSE 2019-01-29 Completed [facility] - OVER 65 OVER 65 08:59:00 [facility] FLUZONE HIGH DOSE FLUZONE HIGH DOSE 2019-01-29 Completed [facility] - OVER 65 OVER 65 08:59:00 [facility] FLUZONE HIGH DOSE FLUZONE HIGH DOSE 2019-01-29 Completed [facility] - OVER 65 OVER 65 08:59:00 [facility] FLUZONE HIGH DOSE FLUZONE HIGH DOSE 2019-01-29 Completed [facility] - OVER 65 OVER 65 08:59:00 [facility] FLUZONE HIGH DOSE FLUZONE HIGH DOSE 2019-01-29 Completed [facility] - OVER 65 OVER 65 08:59:00 [facility] FLUZONE HIGH DOSE FLUZONE HIGH DOSE 2019-01-29 Completed [facility] - OVER 65 OVER 65 08:59:00 [facility] FLUZONE HIGH DOSE FLUZONE HIGH DOSE 2019-01-29 Completed [facility] - OVER 65 OVER 65 08:59:00 [facility] FLUZONE HIGH DOSE FLUZONE HIGH DOSE 2019-01-29 Completed [facility] - OVER 65 OVER 65 08:59:00 [facility] FLUZONE HIGH DOSE FLUZONE HIGH DOSE 2019-01-29 Completed [facility] - OVER 65 OVER 65 00:00:00 [facility] Prevnar 13 Prevnar 13 2018-10-01 Completed [facility] - -Pneumonia Vaccine -Pneumonia Vaccine 17:00:00 [facility] Prevnar 13 Prevnar 13 2018-10-01 Completed [facility] - -Pneumonia Vaccine -Pneumonia Vaccine 17:00:00 [facility] Prevnar 13 Prevnar 13 2018-10-01 Completed [facility] - -Pneumonia Vaccine -Pneumonia Vaccine 17:00:00 [facility] Prevnar 13 Prevnar 13 2018-10-01 Completed [facility] - -Pneumonia Vaccine -Pneumonia Vaccine 17:00:00 [facility] Prevnar 13 Prevnar 13 2018-10-01 Completed [facility] - -Pneumonia Vaccine -Pneumonia Vaccine 17:00:00 [facility] Prevnar 13 Prevnar 13 2018-10-01 Completed [facility] - -Pneumonia Vaccine -Pneumonia Vaccine 17:00:00 [facility] Prevnar 13 Prevnar 13 2018-10-01 Completed [facility] - -Pneumonia Vaccine -Pneumonia Vaccine 17:00:00 [facility] Prevnar 13 Prevnar 13 2018-10-01 Completed [facility] - -Pneumonia Vaccine -Pneumonia Vaccine 17:00:00 [facility] Prevnar 13 Prevnar 13 2018-10-01 Completed [facility] - -Pneumonia Vaccine -Pneumonia Vaccine 17:00:00 [facility] Prevnar 13 Prevnar 13 2018-10-01 Completed [facility] - -Pneumonia Vaccine -Pneumonia Vaccine 17:00:00 [facility] Prevnar 13 Prevnar 13 2018-10-01 Completed [facility] - -Pneumonia Vaccine -Pneumonia Vaccine 17:00:00 [facility] Prevnar 13 Prevnar 13 2018-10-01 Completed [facility] - -Pneumonia Vaccine -Pneumonia Vaccine 17:00:00 [facility] Prevnar 13 Prevnar 13 2018-10-01 Completed [facility] - -Pneumonia Vaccine -Pneumonia Vaccine 17:00:00 [facility] Prevnar 13 Prevnar 13 2018-10-01 Completed [facility] - -Pneumonia Vaccine -Pneumonia Vaccine 17:00:00 [facility] Prevnar 13 Prevnar 13 2018-10-01 Completed [facility] - -Pneumonia Vaccine -Pneumonia Vaccine 17:00:00 [facility] Prevnar 13 Prevnar 13 2018-10-01 Completed [facility] - -Pneumonia Vaccine -Pneumonia Vaccine 17:00:00 [facility] Prevnar 13 Prevnar 13 2018-10-01 Completed [facility] - -Pneumonia Vaccine -Pneumonia Vaccine 17:00:00 [facility] Prevnar 13 Prevnar 13 2018-10-01 Completed [facility] - -Pneumonia Vaccine -Pneumonia Vaccine 17:00:00 [facility] Prevnar 13 Prevnar 13 2018-10-01 Completed [facility] - -Pneumonia Vaccine -Pneumonia Vaccine 17:00:00 [facility] Prevnar 13 Prevnar 13 2018-10-01 Completed [facility] - -Pneumonia Vaccine -Pneumonia Vaccine 17:00:00 [facility] Prevnar 13 Prevnar 13 2018-10-01 Completed [facility] - -Pneumonia Vaccine -Pneumonia Vaccine 17:00:00 [facility] Prevnar 13 Prevnar 13 2018-10-01 Completed [facility] - -Pneumonia Vaccine -Pneumonia Vaccine 17:00:00 [facility] Prevnar 13 Prevnar 13 2018-10-01 Completed [facility] - -Pneumonia Vaccine -Pneumonia Vaccine 17:00:00 [facility] Prevnar 13 Prevnar 13 2018-10-01 Completed [facility] - -Pneumonia Vaccine -Pneumonia Vaccine 17:00:00 [facility] Prevnar 13 Prevnar 13 2018-10-01 Completed [facility] - -Pneumonia Vaccine -Pneumonia Vaccine 17:00:00 [facility] Prevnar 13 Prevnar 13 2018-10-01 Completed [facility] - -Pneumonia Vaccine -Pneumonia Vaccine 17:00:00 [facility] Prevnar 13 Prevnar 13 2018-10-01 Completed [facility] - -Pneumonia Vaccine -Pneumonia Vaccine 00:00:00 [facility] Vital Signs Vital Name Observation Time Observation Value Comments Source height 2022-02-10 11:00:00 59.75 [in_i] [facility] weight 2022-02-10 11:00:00 102 [lb_av] [facility] temperature 2022-02-10 11:00:00 97.3 [degF] [facility] bmi 2022-02-10 11:00:00 20.09 kg/m2 [facility] oximetry 2022-02-10 11:00:00 98 % [facility] respiratory rate 2022-02-10 11:00:00 22 /min Comm on [facility] blood pressure 2022-02-10 11:00:00 133 mm[Hg] [facility] - systolic [facility] blood pressure 2022-02-10 11:00:00 63 mm[Hg] [facility] - diastolic [facility] height 2021-11-10 11:20:00 59.75 [in_i] [facility] weight 2021-11-10 11:20:00 101.6 [lb_av] [facility] - [facility] temperature 2021-11-10 11:20:00 97.9 [degF] [facility] bmi 2021-11-10 11:20:00 20.01 kg/m2 [facility] oximetry 2021-11-10 11:20:00 97 % [facility] respiratory rate 2021-11-10 11:20:00 16 /min Comm on [facility] blood pressure 2021-11-10 11:20:00 132 mm[Hg] [facility] - systolic [facility] blood pressure 2021-11-10 11:20:00 73 mm[Hg] [facility] - diastolic [facility] height 2021-11-10 11:20:00 59.75 [in_i] [facility] weight 2021-11-10 11:20:00 101.6 [lb_av] [facility] temperature 2021-11-10 11:20:00 97.9 [degF] [facility] bmi 2021-11-10 11:20:00 20.01 kg/m2 [facility] oximetry 2021-11-10 11:20:00 97 % [facility] respiratory rate 2021-11-10 11:20:00 16 /min Comm on [facility] blood pressure 2021-11-10 11:20:00 132 mm[Hg] [facility] - systolic [facility] blood pressure 2021-11-10 11:20:00 73 mm[Hg] [facility] - diastolic [facility] height 2021-07-12 11:40:00 59.75 [in_i] [facility] weight 2021-07-12 11:40:00 100 [lb_av] [facility] bmi 2021-07-12 11:40:00 19.69 kg/m2 [facility] height 2021-04-11 16:00:00 59.75 [in_i] [facility] weight 2021-04-11 16:00:00 100.6 [lb_av] [facility] bmi 2021-04-11 16:00:00 19.81 kg/m2 [facility] height 2021-03-04 15:30:00 59.75 [in_i] [facility] weight 2021-03-04 15:30:00 100.6 [lb_av] [facility] temperature 2021-03-04 15:30:00 97.7 [degF] [facility] bmi 2021-03-04 15:30:00 19.81 kg/m2 [facility] oximetry 2021-03-04 15:30:00 93 % [facility] respiratory rate 2021-03-04 15:30:00 17 /min [facility] on [facility] blood pressure 2021-03-04 15:30:00 144 mm[Hg] [facility] - systolic [facility] blood pressure 2021-03-04 15:30:00 75 mm[Hg] [facility] - diastolic [facility] Systolic blood 2021-02-22 13:22:00 155 mm[Hg] [facility] Diastolic blood 2021-02-22 13:22:00 78 mm[Hg] [facility] Heart rate 2021-02-22 13:22:00 90 /min [facility] Body temperature 2021-02-22 13:22:00 36.89 Kami [facility] Respiratory rate 2021-02-22 13:22:00 18 /min [facility] Oxygen saturation in 2021-02-22 13:22:00 99 /min [facility] Arterial blood by [facility] Pulse oximetry [facility] height 2021-02-21 06:58:00 152.4 cm [facility] Body weight 2021-02-21 06:58:00 49.442 kg [facility] BMI 2021-02-21 06:58:00 21.29 kg/m2 [facility] Height 2022-08-30 18:42:00 4 [ft_i] M[facility] Systolic (mm Hg) 2022-08-30 18:42:00 Prem Potter Diastolic (mm Hg) 2022-08-30 18:42:00 Brent [facility] Heart Rate 2022-08-30 18:42:00 [facility] Weight 2022-08-30 18:42:00 [facility] BMI Calculated 2022-08-30 18:42:00 Héctor Davalos Procedures Procedure Date / Time Performing Clinician Source Performed MR CERVICAL SPINE WO 2021-04-15 16:20:36 Marcelo Todd [facility] CONTRAST [facility] ASSIGNMENT OF BENEFITS 2021-04-15 15:03:17 Doctor Unassigned, Un [facility] Markesan [facility] URINALYSIS 2021-02-21 12:49:00 Marito Toscano [facility] CT HEAD WO CONTRAST 2021-02-21 10:00:29 Marito Toscano [facility] CT ANGIOGRAM NECK 2021-02-21 10:00:29 Marito Toscano [facility] COMP. METABOLIC PANEL 2021-02-21 07:31:00 Marito Toscano [facility] ([id number]) [facility] CBC WITH DIFF 2021-02-21 07:31:00 Marito Toscano [facility] section Mello Gilliam n Cholecystectomy Mello Potter Appendectomy Mello Potter Tonsillectomy Mello Potter Encounters Start End Encounter Admission Attending Care Care Encounter Source Date/Time Date/Time Type Type Clinicians Facility Department ID 2022-09-29 Outpatient Guevara, STLMLC STLMLC [id number] Common 08:03:00 Yumiko [id number] [facility] 2022-08-31 Outpatient Guevara, STLMLC STLMLC [id number] [facility] 13:19:00 Yumiko [id number] [facility] 2022-08-30 Outpatient Guevara, STLMLC STLMLC [id number] Common 08:26:00 Yumiko [id number] [facility] 2022-08-29 Outpatient Guevara, STLMLC STLMLC [id number] Common 15:25:00 Yumiko [id number] [facility] 2022-07-07 Outpatient Guevara, STLMLC STLMLC [id number] Common 13:04:00 Yumiko [id number] [facility] 2022-04-25 Outpatient STLMLC STLMLC [id number] Common 08:30:00 [id number] [facility] 2022-02-08 Outpatient Woodall, Na STLMLC STLMLC [id number] 2 Common 10:48:00 [id number] [facility] 2021-11-08 Outpatient Woodall, Na STLMLC STLMLC [id number] 2 Common 14:26:00 [facility] 2021-08-08 Outpatient Woodall, Na STLMLC STLMLC [id number] 2 [facility] 09:21:01 [facility] 2021-05-06 Outpatient Woodall, Na STLMLC STLMLC [id number] 2 [facility] 13:32:01 [facility] 2021-04-27 Outpatient Woodall, Na STLMLC STLMLC [id number] 2 [facility] 14:32:36 [facility] 2021-04-27 Outpatient Woodall, Na STLMLC STLMLC [id number] 2 Common 14:31:41 [facility] 2021-04-27 Outpatient Woodall, Na STLMLC STLMLC [id number] 2 Common 14:19:47 [id number] [facility] 2021-04-27 Outpatient Woodall, Na STLMLC STLMLC [id number] 2 [facility] 13:45:20 [id number] [facility] 2021-04-27 Outpatient Woodall, Na STLMLC STLMLC [id number] 2 Common 13:34:47 [id number] [facility] 2021-04-27 Outpatient Woodall, Na STLMLC STLMLC [id number] 2 [facility] 13:34:20 [id number] [facility] 2021-04-27 Outpatient Woodall, Na STLMLC STLMLC [id number] 2 Common 13:00:01 [id number] [facility] 2021-04-27 Outpatient Coco, STLMLC STLMLC [id number] Common 12:52:42 Muriel [id number] [facility] 2021-04-27 Outpatient Coco, STLMLC STLMLC [id number] Common 12:42:29 Muriel [id number] [facility] 2021-04-27 Outpatient Coco, STLMLC STLMLC [id number] Common 12:37:26 Muriel 06178 [facility] 2021-04-27 Outpatient Coco, STLMLC STLMLC [id number] Common 12:09:29 Muriel 76986 [facility] 2021-04-27 Outpatient Coco, STLMLC STLMLC [id number] Common 12:08:37 Muriel 87436 [facility] 2021-04-27 Outpatient Coco, STLMLC STLMLC [id number] Common 12:08:01 Muriel 01640 [facility] 2021-04-27 Outpatient Coco, STLMLC STLMLC [id number] Common 12:05:13 Muriel 34039 [facility] 2021-04-27 Outpatient Millender, STLMLC STLMLC [id number] Common 12:04:40 Meliza 16129 [facility] 2021-04-27 Outpatient Millender, STLMLC STLMLC [id number] Common 12:04:14 Meliza 83319 [facility] 2021-04-27 Outpatient STLMLC STLMLC [id number] Common 12:02:45 [id number] [facility] 2021-04-27 Outpatient Millender, STLMLC STLMLC [id number] Common 11:56:14 Meliza 46388 [facility] 2021-04-27 Outpatient Millender, STLMLC STLMLC [id number] Common 11:53:10 Meliza 85448 [facility] 2021-04-27 Outpatient Millender, STLMLC STLMLC [id number] Common 11:31:43 Meliza 31041 [facility] 2021-04-27 Outpatient Millender, STLMLC STLMLC [id number] Common 11:31:34 Meliza 86733 [facility] 2021-04-27 Outpatient Millender, STLMLC STLMLC [id number] Common 11:02:36 Meliza 76055 [facility] 2021-04-27 Outpatient Millender, STLMLC STLMLC [id number] Common 11:01:43 Meliza 30589 [facility] 2021-04-27 Outpatient Millender, STLMLC STLMLC [id number] Common 11:00:42 Meliza 10540 [facility] 2021-04-27 Outpatient Millender, STLMLC STLMLC [id number] Common 10:57:44 Meliza 35959 [facility] 2021-04-27 Outpatient Millender, STLMLC STLMLC [id number] Common 10:57:37 Meliza 71707 [facility] 2022-10-11 2022-10-11 Outpatient MHIE MHIE [id number] Memoria 14:45:00 14:45:00 01 justine Potter 2022-08-30 2022-08-31 Outpatient MHIE MNA [id number] Memoria 18:30:00 04:59:59 Neurology 00 l Sade Potter 2022-08-30 2022-08-30 Outpatient Shady [email or web address]ER [email or web address]]SCHER [id number] 13:30:00 23:59:59 Dave Brook Espinal 2022-08-30 2022-08-30 Outpatient MHIE MHIE [id number] Memoria 13:30:00 13:30:00 00 justine Potter 2022-04-18 2022-04-18 (TEL) STLMLC STLMLC [id number] Co mmon 00:00:00 00:00:00 [facility] 2022-04-17 2022-04-17 (TEL) STLMLC STLMLC [id number] Co mmon 00:00:00 00:00:00 [facility] 2022-03-03 2022-03-03 (TEL) STLMLC STLMLC [id number] Co mmon 00:00:00 00:00:00 [facility] 2022-02-24 2022-02-24 (TEL) STLMLC STLMLC [id number] Co mmon 00:00:00 00:00:00 [facility] 2022-02-10 2022-02-10 OFFICE STLMLC STLMLC [id number] Co mmon 00:00:00 00:00:00 VISIT EST Spir it PT LEVEL 3 [facility] 2021-11-10 2021-11-10 SUB ANNUAL STLMLC STLMLC [id number] Common 00:00:00 00:00:00 MCR [facility] VISIT [facility] 2021-11-10 2021-11-10 OFFICE STLMLC STLMLC [id number] Co mmon 00:00:00 00:00:00 VISIT EST Spir it PT LEVEL 3 [facility] 2021-11-02 2021-11-02 (TEL) STLMLC STLMLC [id number] Co mmon 00:00:00 00:00:00 [facility] 2021-09-12 2021-09-12 (TEL) STLMLC STLMLC [id number] Co mmon 00:00:00 00:00:00 [facility] 2021-08-10 2021-08-10 OL DIG E/M STLMLC STLMLC [id number] Common 00:00:00 00:00:00 [facility] 20 Spir it [facility] 2021-08-05 2021-08-05 (TEL) STLMLC STLMLC [id number] Co mmon 00:00:00 00:00:00 [facility] 2021-07-29 2021-07-29 (TEL) STLMLC STLMLC [id number] Co mmon 00:00:00 00:00:00 [facility] 2021-07-12 2021-07-12 OL DIG E/M STLMLC STLMLC [id number] Common 00:00:00 00:00:00 [facility] -20 Spir it [facility] 2021-06-20 2021-06-20 (TEL) STLMLC STLMLC [id number] Co mmon 00:00:00 00:00:00 [facility] 2021-06-08 2021-06-08 (TEL) STLMLC STLMLC [id number] Co mmon 00:00:00 00:00:00 [facility] 2021-05-11 2021-05-11 (TEL) STLMLC STLMLC [id number] Co mmon 00:00:00 00:00:00 [facility] 2021-05-09 2021-05-09 (TEL) STLMLC STLMLC [id number] Co mmon 00:00:00 00:00:00 [facility] 2021-04-22 2021-04-22 (TEL) STLMLC STLMLC [id number] Co mmon 00:00:00 00:00:00 [facility] 2021-04-15 2021-04-15 [facility] [id number] Univers 09:04:31 23:59:00 MARCELO wilson of [facility] 2021-04-15 2021-04-15 [facility] [id number] Univers 09:04:31 23:59:00 Encounter Marcelo GARG [id number] [facility] [facility] [place] [id number] [facility] [address] 2021-04-15 2021-04-15 Orders Doctor CHRIS [id number] Univers 00:00:00 00:00:00 Only Unassigned, JOSE [id number] ity of [place] [facility] 4.2.7.2.686 Davian as [phone] [facility] [address] 2021-04-11 2021-04-11 OL DIG E/M STLMLC STLC [id number] Common 00:00:00 00:00:00 [facility] 02-19 Spir it MIN [facility] 2021-03-21 2021-03-21 (TEL) STLC STLC [id number] Co mmon 00:00:00 00:00:00 [facility] 2021-03-18 2021-03-18 Letter Clinic, Pcp [facility] [id number] Univers 00:00:00 00:00:00 (Out) Neurology PRIMARY [id number] [place] [phone] [facility] [facility] [address] 2021-03-08 2021-03-08 (TEL) STLC STLC [id number] Co mmon 00:00:00 00:00:00 [facility] 2021-03-04 2021-03-04 OFFICE STLC STLC [id number] Co mmon 00:00:00 00:00:00 VISIT [facility] PT CHI LEVEL 4 [facility] 2021-03-02 2021-03-02 (TEL) STLC STLMLC [id number] Co mmon 00:00:00 00:00:00 [facility] 2021-02-23 2021-02-23 Transition WESLEY Jerome [id number] Univers 00:00:00 00:00:00 of Care Jenny REYNOSO 350.1.13.10 [place] [phone] [facility] [address] 2021-02-21 2021-02-22 Outpatient U GEO SONI [facility] [id number] Univers 00:34:00 12:13:00 GEO SONI [facility] 2021-02-21 2021-02-22 [facility] BRYN Soni 1.2.840.114 [id number] Univers 00:34:00 12:13:00 Encounter Geo GARCIA [id number] [facility] [id number] [place] [phone] [facility] [address] 2021-02-15 2021-02-15 (TEL) STLMLC STLMLC [id number] Co mmon 00:00:00 00:00:00 [facility] 2021-02-15 2021-02-15 (TEL) STLMLC STLMLC [id number] Co mmon 00:00:00 00:00:00 [facility] 2020-12-10 2020-12-10 (TEL) STLMLC STLMLC [id number] Co mmon 00:00:00 00:00:00 [facility] 2020-11-04 2020-11-04 Outpatient STLMLC STLMLC [id number] Common 00:00:00 00:00:00 [facility] 2020-11-01 2020-11-01 Outpatient STLMLC STLMLC [id number] Common 00:00:00 00:00:00 [facility] 2020-08-13 2020-08-13 Outpatient STLMLC STLMLC [id number] Common 00:00:00 00:00:00 [facility] 2020-08-05 2020-08-05 Outpatient STLMLC STLMLC [id number] Common 00:00:00 00:00:00 [facility] 2020-07-12 2020-07-12 Outpatient STLMLC STLMLC [id number] Common 00:00:00 00:00:00 [facility] 2020-06-29 2020-06-29 Outpatient STLMLC STLMLC [id number] Common 00:00:00 00:00:00 [facility] 2020-06-15 2020-06-15 Outpatient STLMLC STLMLC [id number] Common 00:00:00 00:00:00 [facility] 2020-06-07 2020-06-07 Outpatient STLMLC STLMLC [id number] Common 00:00:00 00:00:00 [facility] 2020-06-07 2020-06-07 Outpatient STLMLC STLMLC [id number] Common 00:00:00 00:00:00 [facility] 2020-06-03 2020-06-03 Outpatient STLMLC STLMLC [id number] Common 00:00:00 00:00:00 [facility] 2020-06-03 2020-06-03 Outpatient STLMLC STLMLC [id number] Common 00:00:00 00:00:00 [facility] 2020-05-31 2020-05-31 Outpatient STLMLC STLMLC [id number] Common 00:00:00 00:00:00 [facility] 2020-04-15 2020-04-15 Outpatient STLMLC STLMLC [id number] Common 00:00:00 00:00:00 [facility] 2020-04-14 2020-04-14 Outpatient STLMLC STLMLC [id number] Common 00:00:00 00:00:00 [facility] 2020-03-04 2020-03-04 Outpatient STLMLC STLMLC [id number] Common 00:00:00 00:00:00 [facility] 2020-03-01 2020-03-01 Outpatient STLMLC STLMLC [id number] Common 00:00:00 00:00:00 [facility] 2020-02-17 2020-02-17 Outpatient STLMLC STLMLC [id number] Common 00:00:00 00:00:00 [facility] 2020-02-13 2020-02-13 Outpatient STLMLC STLMLC [id number] Common 00:00:00 00:00:00 [facility] 2020 2020 Outpatient STLMLC STLMLC [id number] Common 00:00:00 00:00:00 [facility] 2019-12-10 2019-12-10 [facility] [id number] Common 11:47:00 11:47:[address] [facility] 2019-10-16 2019-10-16 [facility] [id number] Common 09:40:00 09:40:[address] [facility] 2019-10-15 2019-10-15 [facility] [id number] Common 14:40:00 14:40:00 t [facility] 2019-09-24 2019-09-24 [facility] [id number] Common 20:32:00 20:32:[address] [facility] 2019-09-02 2019-09-02 [facility] [id number] Common 08:30:00 08:30:00 t Bone Bone and Spiri t and Joint [facility] - [facility] 2019-09-01 2019-09-01 [facility] [id number] Common 10:22:00 10:22:00 t Bone Bone and Spiri t and Joint [facility] 2019-08-14 2019-08-14 [facility] [id number] Common 13:30:00 13:30:00 t Bone Bone and Spiri t and Joint [facility] - [facility] 2019-07-20 2019-07-20 [facility] [id number] Common 19:15:00 19:15:[address] [facility] 2019-07-16 2019-07-16 Out[facility] [id number] Common 14:45:00 14:45:[address] [facility] 2019-07-03 2019-07-03 [facility] [id number] Common 14:30:00 14:30:00 t Bone Bone and Spiri t and Joint [facility] - [facility] 2019-06-09 2019-06-09 [facility] [id number] Common 12:56:00 12:56:00 t Bone Bone and Spiri t and Joint [facility] - [facility] 2019-06-04 2019-06-04 Out[facility] [id number] Common 07:47:00 07:47:00 t Bone Bone and Spiri t and Joint [facility] - [facility] 2019-06-03 2019-06-03 [facility] [id number] Common 11:00:00 11:00:00 t Bone Bone and Spiri t and Joint [facility] - [facility] 2019-05-29 2019-05-29 Out[facility] [id number] Common 14:11:00 14:11:00 t Bone Bone and Spiri t and Joint [facility] - [facility] 2019-05-15 2019-05-15 [facility] [id number] Common 11:21:00 11:21:00 t Bone Bone and Spiri t and Joint [facility] - [facility] 2019-05-06 2019-05-06 Out[facility] [id number] Common 10:30:00 10:30:00 t Bone Bone and Spiri t and Joint [facility] - [facility] 2019-04-30 2019-04-30 [facility] [id number] Common 08:51:00 08:51:00 t Bone Bone and Spiri t and Joint [facility] - [facility] 2019-04-24 2019-04-24 [facility] [id number] Common 16:54:00 16:54:00 t Bone Bone and Spiri t and Joint [facility] - [facility] 2019-04-24 2019-04-24 Out[facility] [id number] Common 16:26:00 16:26:00 t Bone Bone and Spiri t and Joint [facility] - [facility] 2019-04-24 2019-04-24 Out[facility] [id number] Common 09:13:00 09:13:00 t Bone Bone and Spiri t and Joint [facility] - [facility] 2019-04-22 2019-04-22 Out[facility] [id number] Common 10:30:00 10:30:00 t Bone Bone and Spiri t and Joint [facility] - [facility] 2019-04-21 2019-04-21 Outpatient [facility] [id number] Common 11:41:00 11:41:00 t Bone Bone and Spiri t and Joint [facility] - [facility] 2019-04-16 2019-04-16 [facility] [id number] Common 08:45:00 08:45:[address] [facility] [address] [facility] 2019-01-29 2019-01-29 Out[facility] [id number] Common 08:00:00 08:00:[address] [facility] [address] [facility] 2019-01-18 2019-01-18 Outpatient [facility] [id number] Common 18:26:00 18:26:[address] [facility] 2019-01-14 2019-01-14 Outpatient [facility] [id number] Common 16:45:00 16:45:[address] [facility] 2019-01-02 2019-01-02 Outpatient [facility] [id number] Common 08:00:00 08:00:[address] [facility] 2018-11-26 2018-11-26 Out[facility] [id number] Common 14:20:00 14:20:[address] [facility] 2018-10-29 2018-10-29 Outpatient [facility] [id number] Common 16:09:00 16:09:[address] [facility] 2018-10-29 2018-10-29 Outpatient Sherry [facility] [id number] Common 14:20:00 14:20:[address] [facility] [address] [facility] 2018-10-10 2018-10-10 [facility] [id number] Common 09:20:00 09:20:[address] [facility] [address] [facility] 2018-10-02 2018-10-02 Outpatient Sherry [facility] [id number] Common 10:40:00 10:40:[address] [facility] [address] [facility] 2018-10-01 2018-10-01 Outpatient Oseasgarcia [facility] [id number] Common 15:20:00 15:20:[address] [facility] [address] [facility] Results Test Description Test Time Test Comments Results Result Comments Source Urine Culture,Comprehensive 2021-03-04 00:00:00 Test Item Value Reference Range Interpretation Comme nts Urine Culture,Comprehensive (test code = 630-4) Final report COMP. METABOLIC PANEL ([id number])2021-02-21 08:14:39 Test Item Value Reference Range Interpretation Comments NA (test code = 136 mmol/L 135-145 4135641648) K (test code = 3.4 mmol/L 3.5-5.0 L 7887508988) CL (test code = 107 mmol/L 98-108 5065577500) CO2 TOTAL (test code = 16 mmol/L 23-31 L 2980331304) AGAP (test code = 2-16 6623486172) BUN (test code = 10 mg/dL 7-23 8659438814) GLUCOSE (test code = 103 mg/dL 70-110 7655782133) CREATININE (test code = 0.70 mg/dL 0.50-1.04 7855403837) TOTAL BILI (test code = 0.6 mg/dL 0.1-1.3 3875130911) CALCIUM (test code = 9.1 mg/dL 8.6-10.6 5700357455) T PROTEIN (test code = 6.4 g/dL 6.3-8.2 4995646787) ALBUMIN (test code = 3.6 g/dL 3.5-5.0 4706431365) ALK PHOS (test code = 143 U/L 34-122 H 4508903298) ALTv (test code = 9 U/L 5-35 1742-6) AST(SGOT) (test code = 77 U/L 13-40 H 4280489575) eGFR (test code = mL/min/1.73m2 8443867050) CHARY (test code = CHARY) Association of Glomerular Filtration Rate (GFR) and Staging of Kidney Disease* + --+ --+ ------+| GFR (mL/min/1.73 m2) ?| With Kidney Damage ?| ?Without Kidney Damage+ --------+ --------+ +| ?>90 ?| ?Stage one ?| ? Normal ?+ ---+ ---+ -------+| ?60-89 ?| ?Stage two ?| ? Decreased GFR ? + --+ --+ ------+| ?30-59 ?| ?Stage three ?| ? Stage three ? + --+ --+ ------+| ?15-29 ?| ?Stage four ? | ? Stage four ?+ ---+ ---+ -------+| ?<15 (or dialysis) ? ?| ?Stage five ? | ? Stage five ?+ ---+ ---+ -------+ *Each stage assumes the associated GFR level has been in effect for at least three months. ?Stages 1 to 5, with or without kidney disease, indicate chronic kidney disease. Notes: Determination of stages one and two (with eGFR >59mL/min/1.73 m2) requires estimation of kidney damage for at least three months as defined by structural or functional abnormalities of the kidney, manifested by either:Pathological abnormalities or Markers of kidney damage (including abnormalities in the composition of the blood or urine or abnormalities in imaging tests). Lab Interpretation Abnormal (test code = 73030-5) [facility] WITH [id number] 07:43:37 Test Item Value Reference Range Interpretation Comments WBC (test code = See_Comment H [Automated 6690-2) message] The sy stem which generated this result transmitted reference range : 4.30 - 11.10 10*3/?L. The reference range was not used to interpret this result as normal/abnormal . RBC (test code = See_Comment L [Automated 789-8) message] The sy stem which generated this result transmitted reference range : 3.93 - 5.25 10*6/?L. The reference range was not used to interpret this result as normal/abnormal . HGB (test code = 11.6 g/dL 11.6-15.0 718-7) HCT (test code = 33.0 % 35.7-45.2 L 4544-3) MCV (test code = 95.1 fL 80.6-95.5 787-2) MCH (test code = 33.4 pg 25.9-32.8 H 785-6) MCHC (test code = 35.2 g/dL 31.6-35.1 H 786-4) RDW-SD (test code = 48.4 fL 39.0-49.9 34241-6) RDW-CV (test code = 14.0 % 12.0-15.5 788-0) PLT (test code = See_Comment H [Automated 777-3) message] The sy stem which generated this result transmitted reference range : 166 - 358 10*3/ ?L. The reference r andrew was not used to interpret this result as normal/abnormal . MPV (test code = 8.7 fL 9.5-12.9 L 55085-0) NRBC/100 WBC (test See_Comment [Automat ed code = 5874949231) message] The system which generated this result transmitted reference range : 0.0 - 10.0 /100 WBCs. The refer ence range was not u sed to interpret th is result as normal/abnormal . NRBC x10^3 (test code <0.01 See_Comment [Auto mated = 1350091036) message] The s ystem which generated this result transmitted reference range : 10*3/?L. The reference range was not used to interpret this result as normal/abnormal . GRAN MAT (NEUT) % 70.6 % (test code = 770-8) IMM GRAN % (test code 0.30 % = 4889024231) LYMPH % (test code = 21.1 % 736-9) MONO % (test code = 7.4 % 5905-5) EOS % (test code = 0.3 % 713-8) BASO % (test code = 0.3 % 706-2) GRAN MAT x10^3(ANC) 8.42 10*3/uL 1.88-7.09 H (test code = 0776751465) IMM GRAN x10^3 (test 0.03 10*3/uL 0.00-0.06 code = 5134836610) LYMPH x10^3 (test code 2.51 10*3/uL 1.32-3.29 = 731-0) MONO x10^3 (test code 0.88 10*3/uL 0.33-0.92 = 742-7) EOS x10^3 (test code = 0.04 10*3/uL 0.03-0.39 711-2) BASO x10^3 (test code 0.04 10*3/uL 0.01-0.07 = 704-7) Lab Interpretation Abnormal (test code = 98122-2) [facility]"
--- NOTE | 2022-10-02 21:22 | RAD REPORT ---
EXAM DESCRIPTION: RAD - C Spine Ap/Lat - 10/02/2022 9:18 pm CLINICAL HISTORY: PAIN COMPARISON: No comparisons FINDINGS: Cervical bodies are normal in height and alignment.No fracture or acute bony process seen. Disc thinning lower cervical levels with small endplate osteophytes. No prevertebral soft tissue thickening or other suspicious soft tissue finding. Odontoid is normal an d lateral masses are symmetric. IMPRESSION: Mild lower cervical degenerative spondylosis.
--- NOTE | 2022-10-02 21:23 | RAD REPORT ---
EXAM DESCRIPTION: RAD - Shoulder Left 2 View - 10/02/2022 9:18 pm CLINICAL HISTORY: PAIN COMPARISON: No comparisons FINDINGS: Mild arthritic changes are present. No fracture or dislocation seen.
--- NOTE | 2022-10-02 21:23 | RAD REPORT ---
EXAM DESCRIPTION: RAD - Shoulder Right 2 View - 10/02/2022 9:18 pm CLINICAL HISTORY: PAIN COMPARISON: Shoulder Right 2 View dated 06/14/2014 FINDINGS: Moderate arthritic changes affect the right shoulder. No fracture or dislocation seen.
--- NOTE | 2022-10-02 21:32 | ER ---
Nurse's Notes [facility] Name: Lolita Larkin Age: 72 yrs Sex: Female : 1950 Arrival Date: 10/02/2022 Time: 19:41 Bed 13 Private MD: Diagnosis: Osteoarthritis, unspecified site;Other spondylosis with radiculopathy, cervical region Presentation: 10/02 20:13 Chief complaint: Patient states: "I started having bilateral shoulder and neck pain mb9 while sitting down today. It radiates to my lower back. I've never had pain like this before". Coronavirus screen: Vaccine status: Patient reports being unvaccinated. Ebola Screen: No symptoms or risks identified at this time. Initial Sepsis Screen: Does the patient meet any 2 criteria? No. Patient's initial sepsis screen is negative. Does the patient have a suspected source of infection? No. Patient's initial sepsis screen is negative. Risk Assessment: Do you want to hurt yourself or someone else? Patient reports no desire to harm self or others. Onset of symptoms was October 02, 2022. 20:13 Method Of Arrival: Ambulatory mb9 20:13 Acuity: RON 4 mb9 Triage Assessment: 20:15 General: Appears in no apparent distress. Behavior is cooperative. Pain: Complains of mb9 pain in back and neck. Neuro: Fraser Agitation-Sedation Scale (RASS): 0 - Alert and Calm Level of Consciousness is awake, alert, obeys commands, Oriented to person, place, time, situation, Appropriate for age. Respiratory: Airway is patent Respiratory effort is even, unlabored, Respiratory pattern is regular, symmetrical. Derm: Skin is pink, warm \\T\\ dry. Historical: - Allergies: 20:15 No Known Allergies; mb9 - Home Meds: 20:15 unknown BP med [Active]; mb9 - PMHx: 20:15 Hypertension; mb9 - PSHx: 20:15 Cholecystectomy; mb9 - Immunization history:: Adult Immunizations up to date. - Social history:: Smoking status: Patient reports the use of cigarette tobacco products, smokes one-half pack cigarettes per day. Screenin:32 [facility] ED Fall Risk Assessment (Adult) History of falling in the last 3 months, vc1 including since admission No falls in past 3 months (0 pts) Confusion or Disorientation No (0 pts) Intoxicated or Sedated No (0 pts) Impaired Gait No (0 pts) Mobility Assist Device Used No (0 pt) Altered Elimination No (0 pt) Score/Fall Risk Level 0 - 2 = Low Risk Oriented to surroundings, Maintained a safe environment, Educated pt \\T\\ family on fall prevention, incl call for assistance when getting out of bed. Abuse screen: Denies threats or abuse. Nutritional screening: No deficits noted. Tuberculosis screening: No symptoms or risk factors identified. Assessment: 21:31 Reassessment: No changes from previously documented assessment. Patient and/or family vc1 updated on plan of care and expected duration. Pain level reassessed. Patient is alert, oriented x 3, equal unlabored respirations, skin warm/dry/pink. Vital Signs: 20:13 BP 173 / 85; Pulse 74; Resp 16; Temp 97.8; Pulse Ox 100% on R/A; Weight 45.36 kg; mb9 Height 5 ft. 0 in. ; 21:31 BP 161 / 88; Pulse 64; Resp 16; Pulse Ox 95% ; vc1 20:13 Body Mass Index 19.53 (45.36 kg, 152.4 cm) mb9 ED Course: 19:43 Patient arrived in ED. ag3 19:47 Quan Arellano MD is Attending Physician. kdr 20:10 Patient has correct armband on for positive identification. Placed in gown. Call light vc1 in reach. Pulse ox on. NIBP on. 20:13 Arm band placed on. mb9 20:15 Triage completed. mb9 20:49 Kadi Cook, RN is Primary Nurse. vc1 21:19 Shoulder Left (2 View) XRAY In Process Unspecified. EDMS 21:19 Shoulder Right (2 View) XRAY In Process Unspecified. EDMS 21:20 XRAY C Spine Ap/lat In Process Unspecified. EDMS 21:29 Nancy Laureano FNP-C is PHCP. snw 21:33 No provider procedures requiring assistance completed. Patient did not have IV access vc1 during this emergency room visit. Administered Medications: No medications were administered Medication: 21:33 VIS not applicable for this client. vc1 Outcome: 21:31 Discharge ordered by . snw 21:36 Discharged to home ambulatory. vc1 21:36 Condition: good 21:36 Discharge instructions given to patient, Instructed on discharge instructions, follow up and referral plans. Demonstrated understanding of instructions, follow-up care. 21:37 Patient left the ED. vc1 Signatures: Dispatcher [employer] EDMS Quan Arellano MD MD [facility] Nancy Laureano, CARDIOLOGIST-C CARDIOLOGIST-Csnw Kamryn Hunter ag3 Kadi Cook RN RN vc1 Iwona London RN RN mb9
--- NOTE | 2022-10-02 21:32 | EDPHYS ---
Physician Documentation [facility] Name: Lolita Larkin Age: 72 yrs Sex: Female : 1950 Arrival Date: 10/02/2022 Time: 19:41 Bed 13 Private MD: ED Physician Quan Arellano HPI: 10/02 20:42 This 72 yrs old Female presents to ER via Ambulatory with complaints of Shoulder Pain, kdr NECK PAIN. 20:42 Patient presents to the ED complaining of bilateral shoulder pain and low neck pain. kdr Patient states that she had been to the hospital today to get an MRI of her brain due to memory issues that she was having and via request of her neurologist. She also had plain films done of her lumbar spine which is been hurting her for more than a year. When she arrived home this evening, she began to acutely notice pain in both shoulders when she raised them up over 90 degrees. She said there is a catching feeling and pain in both shoulders when this occurs. She also is feeling pain in her low neck. She may have had pain like this previously but has been many years. She denies any precipitating event or injury that may have resulted in the new presentation of this neck and shoulder pain. Patient otherwise appears to be nontoxic and nonacute and not requiring any emergent intervention. Onset: The symptoms/episode began/occurred suddenly, just prior to arrival, today. Severity of symptoms: At their worst the symptoms were mild in the emergency department the symptoms are unchanged. Not recently. The patient has been recently seen by a physician: the patient's primary care provider. Historical: - Allergies: 20:15 No Known Allergies; mb9 - Home Meds: 20:15 unknown BP med [Active]; mb9 - PMHx: 20:15 Hypertension; mb9 - PSHx: 20:15 Cholecystectomy; mb9 - Immunization history:: Adult Immunizations up to date. - Social history:: Smoking status: Patient reports the use of cigarette tobacco products, smokes one-half pack cigarettes per day. ROS: 20:42 Constitutional: Negative for fever, chills, and weight loss, Eyes: Negative for injury, kdr pain, redness, and discharge, ENT: Negative for injury, pain, and discharge, Cardiovascular: Negative for chest pain, palpitations, and edema, Respiratory: Negative for shortness of breath, cough, wheezing, and pleuritic chest pain, Abdomen/GI: Negative for abdominal pain, nausea, vomiting, diarrhea, and constipation, Back: Negative for injury and pain, : Negative for injury, bleeding, discharge, and swelling, Skin: Negative for injury, rash, and discoloration, Neuro: Negative for headache, weakness, numbness, tingling, and seizure activity. Psych: Negative for depression, anxiety, suicide ideation, homicidal ideation, and hallucinations, Allergy/Immunology: Negative for hives, rash, and allergies, Endocrine: Negative for neck swelling, polydipsia, polyuria, polyphagia, and marked weight changes, Hematologic/Lymphatic: Negative for swollen nodes, abnormal bleeding, and unusual bruising. 20:42 Neck: Positive for pain with movement, Negative for injury or acute deformity. 20:42 MS/extremity: Positive for decreased range of motion, pain, of the anterior aspect of right shoulder, posterior aspect of right shoulder, anterior aspect of left shoulder and posterior aspect of left shoulder. Exam: 20:42 Constitutional: This is a well developed, well nourished patient who is awake, alert, kdr and in no acute distress. Head/Face: Normocephalic, atraumatic. Chest/axilla: Normal chest wall appearance and motion. Nontender with no deformity. No lesions are appreciated. Cardiovascular: Regular rate and rhythm with a normal S1 and S2. No gallops, murmurs, or rubs. Normal PMI, no JVD. No pulse deficits. Respiratory: Lungs have equal breath sounds bilaterally, clear to auscultation and percussion. No rales, rhonchi or wheezes noted. No increased work of breathing, no retractions or nasal flaring. Abdomen/GI: Soft, non-tender, with normal bowel sounds. No distension or tympany. No guarding or rebound. No evidence of tenderness throughout. Back: No spinal tenderness. No costovertebral tenderness. Full range of motion. Neuro: Awake and alert, GCS 15, oriented to person, place, time, and situation. Cranial nerves II-XII grossly intact. Motor strength 5/5 in all extremities. Sensory grossly intact. Cerebellar exam normal. Normal gait. Psych: Awake, alert, with orientation to person, place and time. Behavior, mood, and affect are within normal limits. 20:42 Neck: External neck: tenderness. Vital Signs: 20:13 BP 173 / 85; Pulse 74; Resp 16; Temp 97.8; Pulse Ox 100% on R/A; Weight 45.36 kg; mb9 Height 5 ft. 0 in. ; 21:31 BP 161 / 88; Pulse 64; Resp 16; Pulse Ox 95% ; vc1 20:13 Body Mass Index 19.53 (45.36 kg, 152.4 cm) mb9 MDM: 20:42 Data reviewed: vital signs, nurses notes, lab test result(s), radiologic studies. kdr 21:31 Patient medically screened. snw 10/02 20:40 Order name: Shoulder Left (2 View) XRAY; Complete Time: 21:29 kdr 10/02 20:40 Order name: Shoulder Right (2 View) XRAY; Complete Time: 21:29 kdr 10/02 20:40 Order name: XRAY C Spine Ap/lat; Complete Time: 21:29 kdr Administered Medications: No medications were administered Disposition Summary: 10/02/22 21:31 Discharge Ordered Location: Home snw Condition: Stable snw Diagnosis - Osteoarthritis, unspecified site snw - Other spondylosis with radiculopathy, cervical region snw Followup: snw - With: Emergency Department - When: As needed - Reason: Worsening of condition Followup: snw - With: Private Physician - When: 2 - 3 days - Reason: Recheck today's complaints, Continuance of care, Re-evaluation by your physician Discharge Instructions: - Discharge Summary Sheet snw - Heat Therapy snw - Radicular Pain snw - Spondylolysis snw Forms: - Medication Reconciliation Form snw - Thank You Letter snw - Antibiotic Education snw - Prescription Opioid Use snw - [email or web address] snw Signatures: Dispatcher [employer] EDMS Quan Arellano MD MD kdr Waters, Shelly, FNP-C MEMORY CARE DIRECTOR-Iwona Aguiar RN RN mb9
[2022-10-02 22:16] VITALS: TEMP 97.8
[2022-10-02 22:18] VITALS: BP 161/88; O2SAT 95
== END 2022-10-02 21:37 | disposition home or self-care (01) ==
LOC: ER 19:41
DX: M47.22 Other spondylosis with radiculopathy, cervical region (principal); M19.90 Unspecified osteoarthritis, unspecified site; I10 Essential (primary) hypertension; F17.210 Nicotine dependence, cigarettes, uncomplicated
CPT/HCPCS: 72040; 99283

== ENCOUNTER 2023-06-16 14:33 | Inpatient (IN) | payer OTHER ==
[2023-06-16] MEDS ORDERED: NA CHLORIDE 0.9% 1,000 ML ONE (15:08)
[2023-06-16] MEDS ORDERED: KETOROLAC 30 MG/ML INJ ONE (15:11)
[2023-06-16] MEDS ORDERED: GABAPENTIN 300 MG CAP ONE (15:11)
[2023-06-16 15:26] LABS: Absolute Eosinophils 0.1 K/uL (0-0.5); Absolute Lymphocytes (CBC) 1.7 K/uL (0.7-4.9); Absolute Monocytes 0.6 K/uL (0.1-1.3); Absolute Neutrophil 8.9 K/uL (1.8-8.0); Basophils % 0.4 % (0-1.3); Eosinophils % 0.8 % (0-4.4); Hematocrit 37.8 % (36.0-45.0); Hemoglobin 12.8 g/dL (12.0-15.0); Lymphocytes % 14.9 % (15.3-44.8); MCH 30.4 pg (27.0-35.0); MCHC 33.7 g/dL (32.0-36.0); MPV 7.5 fL (7.6-11.3); Monocytes % 5.5 % (3.3-12.3); Neutrophils % 78.4 % (41.7-73.7); Platelets 392 thou/uL (152-406); RBC Red Blood Cell Count 4.21 M/uL (3.86-4.86); Red Cell Distribution Width 13.8 % (12.1-15.2)
--- NOTE | 2023-06-16 15:32 | RAD REPORT ---
EXAM DESCRIPTION: CT - Head C Spine Cap Wo Con - 06/16/2023 3:17 pm CLINICAL HISTORY: Trauma, head and neck injury. Chest, abdomen and pelvis pain. rib pain, low back pain, falls, weakness COMPARISON: Lumbar Spine Wo Con dated 11/02/2022 TECHNIQUE: CT head without contrast. CT cervical spine without contrast with coronal and sagittal reformatted images. CT chest, abdomen and pelvis without contrast with coronal and sagittal reformatted images of the spi ne. All CT scans are performed using dose optimization technique as appropriate and may include automated exposure control or mA/KV adjustment according to patient size. FINDINGS: CT HEAD WITHOUT CONTRAST: No intracranial hemorrhage, hydrocephalus or extra-axial fluid collection. Mild generalized brain atr ophy is present with mild periventricular and deep white matter chronic microvascular ischemic change s. No areas of brain edema or midline shift. The paranasal sinuses and mastoids are clear. The calvarium is intact. CT CERVICAL SPINE WITHOUT CONTRAST: No fracture or subluxation. Mild lower cervical degenerative changes. The prevertebral soft tissues a re normal in thickness. CT CHEST, ABDOMEN, PELVIS WITHOUT CONTRAST: NOTE: Lack of contrast is a significant limitation in the assessment of trauma related findings. Spec ifically, solid organ, vascular and bowel evaluation is significantly limited. The lungs are clear.Mild emphysema.No pneumothorax or pericardial/pleural fluid. No evidence of intra-abdominal visceral injury, free fluid or free air is seen within the above detai led limitations. Small stone inferior right kidney. No concerning pelvic findings. There is a mild wedge compression fracture of L1 with about 30% vertebral body height loss. This is a chronic finding. No acute fractures are seen. IMPRESSION: Negative for acute traumatic findings within the above detailed limitations.
[2023-06-16 15:52] LABS: Albumin 3.2 g/dL (3.4-5.0); Albumin/Globulin Ratio 0.8 (1.1-1.8); Anion Gap 18.5 mEq/L (5.0-15.0); Bilirubin Total 0.4 mg/dL (0.2-1.0); Potassium 3.5 mEq/L (3.5-5.1); Protein, Total 7.2 g/dL (6.4-8.2); Troponin High Sensitivity 15.6 pg/mL (<58.9)
--- NOTE | 2023-06-16 15:54 | ER ---
Nurse's Notes [facility] Name: Lolita Larkin Age: 73 yrs Sex: Female : 1950 Arrival Date: 06/16/2023 Time: 14:33 Bed 19 Private MD: Diagnosis: Rhabdomyolysis Presentation: 06/15 14:38 Chief complaint: Patient states: "my legs have been giving out on me and I've been aa5 falling a lot". pt c/o lower back pain and c/o rib pain. Pt reports symptoms began approximately 1 week ago. 14:38 Coronavirus screen: At this time, the client does not indicate any symptoms associated aa5 with coronavirus-19. Ebola Screen: Patient denies travel to an Ebola-affected area in the 21 days before illness onset. Initial Sepsis Screen: Does the patient meet any 2 criteria? HR > 90 bpm. Does the patient have a suspected source of infection? No. Patient's initial sepsis screen is negative. Risk Assessment: Do you want to hurt yourself or someone else? Patient reports no desire to harm self or others. Onset of symptoms was June 2023. 14:38 Acuity: RON 3 aa5 14:38 Method Of Arrival: Wheelchair aa5 Historical: - Allergies: 14:41 No Known Allergies; aa5 - PMHx: 14:38 Hypertension; aa5 - PSHx: 14:38 Cholecystectomy; aa5 - Immunization history:: Adult Immunizations unknown. - Social history:: Smoking status: Patient reports the use of cigarette tobacco products. Screenin:40 [facility] ED Fall Risk Assessment (Adult) History of falling in the last 3 months, rs5 including since admission Yes- single mechanical fall (1 pt) Confusion or Disorientation No (0 pts) Intoxicated or Sedated No (0 pts) Impaired Gait Yes (1 pt) Mobility Assist Device Used Yes (1 pt) Altered Elimination No (0 pt) Score/Fall Risk Level 3 or more points = High Risk Oriented to surroundings, Maintained a safe environment, Hourly rounding (assess needs \\T\\ fall precautionary measures) done. Abuse screen: Denies threats or abuse. Nutritional screening: No deficits noted. Tuberculosis screening: No symptoms or risk factors identified. Assessment: 14:40 General: Appears in no apparent distress. uncomfortable, Behavior is calm, cooperative. rs5 Pain: Complains of pain in lower back, legs bilat Pain does not radiate. Pain currently is 8 out of 10 on a pain scale. Quality of pain is described as aching, Is continuous. Neuro: Level of Consciousness is awake, alert, obeys commands, Oriented to person, place, time, situation. Cardiovascular: Patient's skin is warm and dry. Rhythm is regular. 14:40 Respiratory: Airway is patent Respiratory effort is even, unlabored, Respiratory rs5 pattern is regular, symmetrical. GI: Abdomen is round non-distended, Abd is soft and non tender X 4 quads. : No signs and/or symptoms were reported regarding the genitourinary system. EENT: No signs and/or symptoms were reported regarding the EENT system. Derm: Skin is intact, Skin is pink, warm \\T\\ dry. Musculoskeletal: Range of motion: intact in all extremities, Reports weakness in legs bilat. 15:55 Reassessment: Patient and/or family updated on plan of care and expected duration. Pain rs5 level reassessed. Patient is alert, oriented x 3, equal unlabored respirations, skin warm/dry/pink. Patient denies pain at this time. Patient states feeling better. Patient states symptoms have improved. 17:10 Reassessment: No changes from previously documented assessment. rs5 17:40 Reassessment: report sheet completed and faxed to 4rth floor, Teagan Mcleod from 4rth rs5 floor called to confirm faxed report was received. Vital Signs: 14:38 BP 139 / 80; Pulse 99; Resp 20 S; Temp 97.5(TE); Pulse Ox 94% on R/A; Weight 45.36 kg aa5 (R); Height 4 ft. 11 in. (R); 16:10 BP 140 / 81; Pulse 88; Resp 18; Pulse Ox 99% on R/A; rs5 17:38 BP 149 / 80; Pulse 77; Resp 18; Temp 97.6(O); Pulse Ox 99% on R/A; rs5 14:38 Body Mass Index 20.20 (45.36 kg, 149.86 cm) aa5 ED Course: 14:36 Patient arrived in ED. mg5 14:38 Lily Jones PA-C is PHCP. sb4 14:38 Shirin Bailon MD is Attending Physician. sb4 14:38 Arm band placed on. aa5 14:40 Triage completed. aa5 14:40 Patient has correct armband on for positive identification. Placed in gown. Bed in low rs5 position. Call light in reach. Side rails up X2. 14:40 No provider procedures requiring assistance completed. rs5 14:50 Inserted saline lock: 22 gauge in right forearm, using aseptic technique. rs5 14:53 Neymar Aguilar, BALWINDER is Primary Nurse. rs5 15:[address] via stretcher. hb 15:18 CT Traumagram (Head C Spine CAP wo con) In Process Unspecified. EDMS 15:53 Maxine Patel MD is Hospitalizing Provider. sb4 15:56 Porfirio Medellin MD is Hospitalizing Provider. sb4 16:01 Inserted saline lock: 22 gauge in left antecubital area, using aseptic technique. rs5 18:00 Patient admitted, IV remains in place. rs5 Administered Medications: 15:13 Drug: NS 0.9% IV 1000 ml IV at 1 bolus Per protocol; 1000 mL bolus Route: IV; Rate: 1 rs5 bolus; Site: left antecubital; 15:30 Follow up: Response: No adverse reaction rs5 15:13 Drug: Gabapentin PO 300 mg PO once Route: PO; rs5 16:12 Follow up: Response: No adverse reaction; Pain is decreased rs5 15:13 Drug: Ketorolac IVP 30 mg IVP once Route: IVP; Site: left antecubital; rs5 16:00 Follow up: Response: No adverse reaction rs5 Medication: 15:52 VIS not applicable for this client. rs5 Outcome: 15:53 Decision to Hospitalize by Provider. sb4 18:00 Admitted to Med/surg accompanied by nurse, with chart, rs5 18:00 Condition: stable rs5 18:00 Discharge instructions given to patient, Instructed on the need for admit, 18:11 Patient left the ED. rs5 Signatures: Dispatcher [employer] EDMS Greta Naqvi RN RN aa5 Deepthi Izaguirre RN RN Lily Jones, PA-C PA-C sb4 Neymar Aguilar, BALWINDER RN rs5 Kelsi Arthur mg5 Corrections: (The following items were deleted from the chart) 19:28 18:00 Discharged to home via wheelchair, rs5 rs5 19: 18:00 Condition: stable rs5 rs5 : 18:00 Discharge instructions given to patient, family, Instructed on discharge rs5 instructions, follow up and referral plans. Demonstrated understanding of instructions, follow-up care, rs5
--- NOTE | 2023-06-16 15:54 | EDPHYS ---
Physician Documentation [facility] Name: Lolita Larkin Age: 73 yrs Sex: Female : 1950 Arrival Date: 06/16/2023 Time: 14:33 Bed 19 Private MD: ED Physician Shirin Bailon HPI: 06/15 14:52 This 73 yrs old Female presents to ER via Wheelchair with complaints of Back Pain, sb4 General Weakness. 14:52 Patient states that she falls a lot at home. Most recently, she fell about 1 week ago sb4 and hurt her left ribs and lower back. She states that ever since, her legs have been very weak and "giving out on her "she denies any bladder or bowel incontinence. No saddle paresthesias. Historical: - Allergies: 14:41 No Known Allergies; aa5 - PMHx: 14:38 Hypertension; aa5 - PSHx: 14:38 Cholecystectomy; aa5 - Immunization history:: Adult Immunizations unknown. - Social history:: Smoking status: Patient reports the use of cigarette tobacco products. ROS: 14:52 Constitutional: Negative for fever, chills, and weight loss, sb4 14:52 Back: Positive for pain at rest, pain with movement, 14:52 MS/extremity: Positive for pain, of the left lateral anterior chest, 14:52 Neuro: Positive for weakness, 14:52 All other systems are negative, Exam: 14:52 Head/Face: Normocephalic, atraumatic. Eyes: Extra-ocular motions intact. Periorbital sb4 areas with no swelling, redness, or edema. ENT: Mucous membranes moist. Cardiovascular: Regular rate and rhythm with a normal S1 and S2. Respiratory: Lungs have equal breath sounds bilaterally, clear to auscultation and percussion. No rales, rhonchi or wheezes noted. No increased work of breathing, no retractions or nasal flaring. Abdomen/GI: Soft, non-tender, no distension. 14:52 Constitutional: The patient appears alert, awake, frail, unkempt, 14:52 Back: pain, that is mild, ROM is normal, normal spinal alignment noted, CVA tenderness, is absent, vertebral tenderness, is not appreciated, muscle spasm, is not present, 14:52 Neuro: Motor: Strength is 2/5 in the right leg and left leg, Sensation: is normal, no obvious gross deficits, Vital Signs: 14:38 BP 139 / 80; Pulse 99; Resp 20 S; Temp 97.5(TE); Pulse Ox 94% on R/A; Weight 45.36 kg aa5 (R); Height 4 ft. 11 in. (R); 16:10 BP 140 / 81; Pulse 88; Resp 18; Pulse Ox 99% on R/A; rs5 17:38 BP 149 / 80; Pulse 77; Resp 18; Temp 97.6(O); Pulse Ox 99% on R/A; rs5 14:38 Body Mass Index 20.20 (45.36 kg, 149.86 cm) aa5 MDM: 14:38 Patient medically screened. sb4 15:53 Data reviewed: vital signs, nurses notes, lab test result(s), radiologic studies, and sb4 as a result, I will admit patient. Counseling: I had a detailed discussion with the patient and/or guardian regarding the historical points, exam findings, and any diagnostic results supporting the discharge/admit diagnosis, lab results, radiology results, the need for further work-up and treatment in the hospital. 06/15 14:52 Order name: CBC with Diff; Complete Time: 15:30 sb4 06/15 14:52 Order name: CMP; Complete Time: 15:52 sb4 06/15 14:52 Order name: CK; Complete Time: 15:52 sb4 06/15 14:52 Order name: Troponin HS; Complete Time: 15:52 sb4 06/15 16:27 Order name: UAM; Complete Time: 17:20 la1 06/15 14:51 Order name: CT Traumagram (Head C Spine CAP wo con); Complete Time: 15:34 sb4 06/15 14:52 Order name: IV Saline Lock; Complete Time: 15:05 sb4 06/15 14:52 Order name: Labs collected and sent; Complete Time: 15:05 sb4 Administered Medications: 15:13 Drug: NS 0.9% IV 1000 ml IV at 1 bolus Per protocol; 1000 mL bolus Route: IV; Rate: 1 rs5 bolus; Site: left antecubital; 15:30 Follow up: Response: No adverse reaction rs5 15:13 Drug: Gabapentin PO 300 mg PO once Route: PO; rs5 16:12 Follow up: Response: No adverse reaction; Pain is decreased rs5 15:13 Drug: Ketorolac IVP 30 mg IVP once Route: IVP; Site: left antecubital; rs5 16:00 Follow up: Response: No adverse reaction rs5 Disposition: 19:06 I agree with the assessment and plan of care. I reviewed the patient's care provided by cp3 Advanced Practice Provider \\T\\ agree w/ the diagnosis \\T\\ care plan. I personally saw the pt \\T\\ performed a substantive portion of the visit, incldng all aspects of the (History/Exam/Medical Decision Making). Disposition Summary: 06/16/23 15:53 Hospitalization Ordered Notes: Hospitalization Status: Inpatient Admission sb4 Location: Telemetry/MedSurg (Inpatient) sb4 Condition: Fair sb4 Problem: new sb4 Symptoms: are unchanged sb4 Bed/Room Type: Standard sb4 Provider: Porfirio Medellin(06/16/23 15:56) sb4 Room Assignment: [facility](06/16/23 17:40) eb Diagnosis - Rhabdomyolysis sb4 Forms: - Medication Reconciliation Form sb4 - SBAR form sb4 - Leadership Thank You Letter sb4 Signatures: Dispatcher [employer] Shirin Curtis MD MD cp3 Greta Naqvi, RN RN aa5 Allyn Song Sophia, PA-C PADarya sb4 Neymar Aguilar RN RN rs5 Corrections: (The following items were deleted from the chart) 14:53 14:52 Patient states that she falls a lot at home. Most recently, she fell about 1 week sb4 ago. sb4 15:56 15:53 Maxine Patel sb4 sb4 17:40 15:53 sb4 eb
--- NOTE | 2023-06-16 16:38 | P.HP ---
Certification for Inpatient Patient admitted to: Inpatient With expected LOS: >2 Midnights Patient will require the following post-hospital care: None Practitioner: I am a practitioner with admitting privileges, knowledge of patient current condition, hospital course, and medical plan of care. Services: Services provided to patient in accordance with Admission requirements found in Title 42 Section 412.3 of the Code of Federal Regulations Patient History Date of Service: 06/16/23 Primary Care Provider: Dr. werner Reason for admission: Rhabdomyolysis, weakness, frequent falls History of Present Illness: 73-year-old female with history of hypertension, chronic pain presents emergency department chief complaint of falls, weakness, back pain. She reports she has been having near daily falls for the last 1 month or so, also feeling like both of her lower extremities have been weaker the past 3 days. Most of the time roxana t she falls was trying to get into her bed which she reports is about the same height as an ER stretcher. Often her family is not home with her so she lies on the floor overnight because she does not want to bother anybody. No lower extremity paresthesias, saddle paresthesia, bowel or bladder incontinence. She had an MRI of her lumbar spine performed in October 2022 which showed mild chronic central compression deformity of L1 vertebral body. Mild lumbar spondylosis. CT head/C-spine/chest abdomen pelvis was performed today no acute traumatic findings. Patient was evaluated in the emergency department today her labs are significant for white blood cell 11.3 CPK 1721 AST 108 ALT 67 alk phos 137. ED provider wishes to admit patient for further evaluation management of frequent falls, w eakness, rhabdomyolysis. Allergies No Known Drug Allergies Allergy (Verified 03/28/22 14:31) Unknown Home Medications: Cholecalciferol (Vitamin D3) [Vitamin D3] 125 mcg PO DAILY 03/28/22 Hydrocodone 5/APAP 325 [[place] 5/325] 1 tab PO BID 03/28/22 Sertraline [Zoloft] 100 mg PO BID 03/28/22 - Past Medical/Surgical History -: HTN -: chronic pain -: tobacco use disorder -: anxiety -: Cholecystectomy Psychosocial/ Personal History: Lives at home with her daughterMisty - Family History Family History: Reviewed- Non-Contributory - Social History Smoking Status: Current every day smoker Counseled patient to stop smoking for: less than 10 minutes Smoking therapy provided: Yes Alcohol use: Yes CD- Drugs: No Caffeine use: Yes Place of Residence: Home Review of Systems 10-point ROS is otherwise unremarkable General: Weakness Musculoskeletal: Back Pain Physical Examination - Physical Exam General: Alert, In no apparent distress, Oriented x3 HEENT: Atraumatic, PERRLA, Mucous membr. moist/pink Neck: Supple, 2+ carotid pulse no bruit, No LAD Respiratory: Clear to auscultation bilaterally, Normal air movement Cardiovascular: Regular rate/rhythm, Normal S1 S2 Gastrointestinal: Normal bowel sounds, No tenderness Musculoskeletal: No tenderness Integumentary: No rashes Neurological: Normal speech, Normal tone, Normal affect, Abnormal strength (4/5 distal lower extremity EVER , 3/5 prox LE EVER) - Studies Laboratory Data (last 24 hrs) 06/16/23 06/16/23 15:01 15:01 WBC 11.30 H Hgb 12.8 Hct 37.8 Plt Count 392 Sodium 138 Potassium 3.5 BUN 17 Creatinine 0.85 Glucose 81 Total Bilirubin 0.4 AST 108 H ALT 67 H Alkaline Phosphatase 137 H Assessment and Plan - Plan Assessment: Rhabdomyolysis Weakness, multiple falls Chronic back pain Hypertension Tobacco use disorder Anxiety Plan: Rhabdomyolysis Continue IV fluids overnight Monitor CPK, renal function daily Weakness, multiple falls Reports near daily falls for the last 1 month Increasing lower extremity weakness the past 3 days or so Lives with daughter but she is not always around Has had to lie on the wood floor overnight multiple times MRI L-spine in October 2022 showed Mild chronic central compression deformity of L1 vertebral body. Mild lumbar spondylosis as detailed. CT head/C-spine/chest abdomen pelvis negative for acute findings 06/15 Denies lower extremity paresthesias, saddle paresthesia, bowel or bladder incontinence Weakness seems to be more proximal in the lower extremities PT consulted, was supposed to have outpatient PT starting 06/18 but has been getting worse Chronic back pain Continue [place] 5 as needed Hypertension Continue home medication once verified Tobacco use disorder Counseled on need for tobacco cessation, nicotine patch provided Anxiety Continue medication once verified DVT PPX:Lovenox Code status: Discharge Plan: Home Plan to discharge in: Greater than 2 days - Advance Directives Does patient have a Living Will: No Does patient have a Durable POA for Healthcare: No - Code Status/Comfort Care Code Status Assessed: Yes (Full code) Critical Care: No Time Spent Managing Pts Care (In Minutes): 70
[2023-06-16 17:19] LABS: Specific Gravity 1.016 (1.005-1.030); Urine Bacteria <20 /HPF (<20); Urine Bilirubin NEGATIVE (Negative); Urine Blood 1+ (Negative); Urine Clarity Extremely Turbid (Clear); Urine Color Yellow (Yellow); Urine Culture Reflex Order NOT NEEDED; Urine Glucose NEGATIVE (Negative); Urine Ketones 1+ (Negative); Urine Micro Reflex YN NO BILL MICROSCOPIC; Urine Mucus Slight /HPF (None Seen); Urine Nitrite NEGATIVE (Negative); Urine Protein TRACE (Negative); Urine RBC <5 /HPF (None Seen); Urine Urobilinogen 1+ (Normal); Urine WBC <5 /HPF (<5); Urine pH 5.5 (5.0-7.0)
[2023-06-16 18:57] VITALS: BMI 19.8
[2023-06-16] MEDS: NA CHLORIDE 0.9% 1,000 ML IV SCH (23:48)
[2023-06-17 04:38] LABS: Absolute Basophils 0.1 K/uL (0-0.5); Absolute Eosinophils 0.1 K/uL (0-0.5); Absolute Lymphocytes (CBC) 2.6 K/uL (0.7-4.9); Absolute Monocytes 0.6 K/uL (0.1-1.3); Absolute Neutrophil 4.8 K/uL (1.8-8.0); Basophils % 0.9 % (0-1.3); Eosinophils % 1.8 % (0-4.4); Hematocrit 32.3 % (36.0-45.0); Hemoglobin 11.2 g/dL (12.0-15.0); Lymphocytes % 31.4 % (15.3-44.8); MCH 31.4 pg (27.0-35.0); MCHC 34.5 g/dL (32.0-36.0); MPV 7.6 fL (7.6-11.3); Monocytes % 7.2 % (3.3-12.3); Neutrophils % 58.7 % (41.7-73.7); Platelets 349 thou/uL (152-406); RBC Red Blood Cell Count 3.55 M/uL (3.86-4.86); Red Cell Distribution Width 13.5 % (12.1-15.2)
[2023-06-17 06:25] LABS: Anion Gap 10.9 mEq/L (5.0-15.0); Potassium 3.9 mEq/L (3.5-5.1); Thyroid Stimulating Hormone 1.33 uIU/mL (0.358-3.740)
[2023-06-17] MEDS: ENOXAPARIN 40 MG/0.4 ML SQ SCH (08:42)
[2023-06-17] MEDS: NA CHLORIDE 0.9% 1,000 ML IV SCH (10:23)
[2023-06-17] MEDS: HYDROCODONE/APAP 5/325 MG TAB PO PRN (10:27)
--- NOTE | 2023-06-17 11:38 | P.PN ---
Date of Service: 06/17/23 Subjective: feeling better with some generalized aches no new/worsening symptoms voiding without issue, clear urine strength in legs slightly improved ROS: 10 point ROS as noted above, otherwise negative Physical Exam: GEN: Alert, oriented, NAD HEENT: Normal conjunctiva, sclera anicteric CV: Regular rate and rhythm, no edema Pulm: Non-labored respirations on room air, clear bilaterally ABD: Soft, nontender, nondistended Neuro: Normal speech, normal affect, Abnormal strength (4/5 distal lower extremity EVER , 4/5 prox LE EVER) vitals reviewed Problem List: Rhabdomyolysis after fall elevated LFTs Lower extremity Weakness, multiple falls Chronic back pain Hypertension Tobacco use disorder Anxiety Rhabdomyolysis multiple falls at home, was on hardwood floor after fall for ~8hrs prior to coming in given IVF bolus in ED. Continue IV fluids this morning, decrease rate this afternoon1 Continue to monitor renal function, CPK improving CPK 1721 -> 1099 (06/16) hold home statin Weakness, multiple falls Reports near daily falls over the last 1 month. +Increasing lower extremity weakness the past ~3 days. Lives with daughter but she is not always around. Has had to lie on the wood floor overnight multiple times. Denies lower extremity paresthesias, saddle paresthesia, bowel or bladder incontinence Weakness seems to be more proximal in the lower extremities MRI L-spine (October 2022): Mild chronic central compression deformity of L1 vertebral body. Mild lumbar spondylosis. CT head/chest/pelvis (06/15): Noted mild emphysema, small stone inferior right kidney, chronic mild wedge compression fracture of L1 with ~30 height loss, otherwise negative for acute findings. PT consulted, was supposed to have outpatient PT starting 06/18 but has been getting worse elevated LFTs possibly from rhabdo, however doesn't seem to have severe rhabdo possibly from fall CT abd didn't note any significant finding with liver prior lfts normal will need home med rec completed to review risk of chronic meds hold home statin recheck in AM Chronic back pain PRN analgesics - takes norco 5/325 at home Hypertension confirm home meds, restart as appropriate Tobacco use disorder Counseled on need for tobacco cessation, nicotine patch provided Anxiety confirm home meds, restart as appropriate pending home med rec; pharmacy query shows sertraline, amitriptyline, and buspar; will need to review / confirm dose/frequency VTE: Lovenox Code: Full Dispo: Home, ~1-2 days
[2023-06-17] MEDS: SERTRALINE HCL 100 MG TAB PO SCH (13:01)
[2023-06-18 04:12] LABS: Absolute Basophils 0.1 K/uL (0-0.5); Absolute Eosinophils 0.2 K/uL (0-0.5); Absolute Lymphocytes (CBC) 2.4 K/uL (0.7-4.9); Absolute Monocytes 0.7 K/uL (0.1-1.3); Absolute Neutrophil 5.2 K/uL (1.8-8.0); Basophils % 0.8 % (0-1.3); Eosinophils % 2.1 % (0-4.4); Hematocrit 32.9 % (36.0-45.0); Hemoglobin 11.4 g/dL (12.0-15.0); MCH 31.4 pg (27.0-35.0); MCHC 34.7 g/dL (32.0-36.0); MCV 90.4 fL (80-100); MPV 7.7 fL (7.6-11.3); Monocytes % 7.7 % (3.3-12.3); Neutrophils % 61.4 % (41.7-73.7); Platelets 378 thou/uL (152-406); RBC Red Blood Cell Count 3.64 M/uL (3.86-4.86); Red Cell Distribution Width 13.9 % (12.1-15.2)
[2023-06-18 04:30] LABS: Albumin 2.7 g/dL (3.4-5.0); Albumin/Globulin Ratio 0.8 (1.1-1.8); Anion Gap 8.2 mEq/L (5.0-15.0); Bilirubin Total 0.2 mg/dL (0.2-1.0); Globulin 3.2 g/dL (2.3-3.5); Magnesium 1.4 mg/dL (1.6-2.4); Potassium 3.2 mEq/L (3.5-5.1); Protein, Total 5.9 g/dL (6.4-8.2)
[2023-06-18] MEDS: POTASSIUM CL SA 10 MEQ TAB PO ONE (08:40)
[2023-06-18] MEDS: Magnesium Sulfate 2gm IVPB 2 G/50 ML BAG IV ONE (08:42)
--- NOTE | 2023-06-18 10:03 | P.PN ---
Date of Service: 06/18/23 Subjective: BP elevated. reports taking amlodipine, enalapril at home. ambulating with RW. denies any worsening weakness when ambulating ROS: 10 point ROS as noted above, otherwise negative Physical Exam: GEN: Alert, oriented, NAD HEENT: Normal conjunctiva, sclera anicteric CV: Regular rate and rhythm, no edema Pulm: Non-labored respirations on room air, clear bilaterally ABD: Soft, nontender, nondistended Neuro: Normal speech, normal affect vitals reviewed Problem List: Rhabdomyolysis after fall elevated LFTs Lower extremity Weakness, multiple falls Chronic back pain Hypertension Tobacco use disorder Anxiety Rhabdomyolysis after fall multiple falls at home, was on hardwood floor after fall for ~8hrs prior to coming in given IVF bolus in ED. IVF dc'd 06/16 Continue to monitor renal function, CPK improving CPK 1099 -> 656 (06/17) hold home statin elevated LFTs improving, possibly from rhabdo, however doesn't seem to have severe rhabdo possibly from fall CT abd didn't note any significant finding with liver prior lfts normal will need home med rec completed to review risk of chronic meds hold home statin Weakness, multiple falls Reports near daily falls over the last 1 month. +Increasing lower extremity weakness the past ~3 days. Lives with daughter but she is not always around. Has had to lie on the wood floor overnight multiple times. Denies lower extremity paresthesias, saddle paresthesia, bowel or bladder incontinence Weakness seems to be more proximal in the lower extremities reports mainly occurs at night - when walking. Does report drinking liquor beverage at night MRI L-spine (October 2022): Mild chronic central compression deformity of L1 vertebral body. Mild lumbar spondylosis. CT head/chest/pelvis (06/15): Noted mild emphysema, small stone inferior right kidney, chronic mild wedge compression fracture of L1 with ~30 height loss, otherwise negative for acute findings. PT consulted, was supposed to have outpatient PT starting 06/18 but has been getting worse ambulating better 06/17 with PT Chronic back pain PRN analgesics - takes norco 5/325 at home Hypertension pending home med rec but patient reports taking amlodipine, enalapril at home. she is unsure of dose resume home amlodipine, enalapril Tobacco use disorder Counseled on need for tobacco cessation, nicotine patch provided Anxiety confirm home meds, restart as appropriate pending home med rec; pharmacy query shows sertraline, amitriptyline, and buspar; will need to review / confirm dose/frequency VTE: Lovenox Code: Full Dispo: Home, ~1-2 days
[2023-06-18] MEDS: AMLODIPINE 10 MG TAB PO SCH (10:25)
[2023-06-18] MEDS: ENALAPRIL 10 MG TAB PO SCH (10:26)
[2023-06-19 06:55] LABS: Absolute Basophils 0.1 K/uL (0-0.5); Absolute Eosinophils 0.2 K/uL (0-0.5); Absolute Lymphocytes (CBC) 2.4 K/uL (0.7-4.9); Absolute Monocytes 0.7 K/uL (0.1-1.3); Absolute Neutrophil 3.1 K/uL (1.8-8.0); Basophils % 1.1 % (0-1.3); Eosinophils % 2.5 % (0-4.4); Hematocrit 35.8 % (36.0-45.0); Hemoglobin 12.4 g/dL (12.0-15.0); MCH 31.1 pg (27.0-35.0); MCHC 34.6 g/dL (32.0-36.0); MCV 89.7 fL (80-100); MPV 7.3 fL (7.6-11.3); Monocytes % 10.9 % (3.3-12.3); Neutrophils % 48.5 % (41.7-73.7); Nucleated Red Blood Cells % 0.1 % (0-0); Platelets 414 thou/uL (152-406); RBC Red Blood Cell Count 3.99 M/uL (3.86-4.86); Red Cell Distribution Width 13.8 % (12.1-15.2)
[2023-06-19 07:12] LABS: Albumin 2.9 g/dL (3.4-5.0); Albumin/Globulin Ratio 0.8 (1.1-1.8); Anion Gap 7.5 mEq/L (5.0-15.0); Bilirubin Total 0.3 mg/dL (0.2-1.0); Globulin 3.6 g/dL (2.3-3.5); Magnesium 1.6 mg/dL (1.6-2.4); Potassium 4.5 mEq/L (3.5-5.1); Protein, Total 6.5 g/dL (6.4-8.2)
[2023-06-19] MEDS: MAGNESIUM SULFATE 1 gm IVPB 1 GM/100 ML BAG IV ONE (08:45)
[2023-06-19 08:49] VITALS: BP 181/78
--- NOTE | 2023-06-19 08:58 | P.DS ---
Admission Date: 06/16/23 Discharge Date: 06/19/23 Primary Care Provider: Dr. werner Disposition: ROUTINE DISCHARGE Reason for Admission: Rhabdomyolysis, weakness, frequent falls Brief History of Present Illness: 73-year-old female with history of hypertension, chronic pain presents emergency department chief complaint of falls, weakness, back pain. She reports she has been having near daily falls for the last 1 month or so, also feeling like both of her lower extremities have been weaker the past 3 days. Most of the time that she falls was trying to get into her bed which she reports is about the same height as an ER stretcher. Often her family is not home with her so she lies on the floor overnight because she does not want to bother anybody. No lower extremity paresthesias, saddle paresthesia, bowel or bladder incontinence. She had an MRI of her lumbar spine performed in October 2022 which showed mild chronic central compression deformity of L1 vertebral body. Mild lumbar spondylosis. CT head/C-spine/chest abdomen pelvis was performed today no acute traumatic findings. Patient was evaluated in the emergency department today her labs are significant for white blood cell 11.3 CPK 1721 AST 108 ALT 67 alk phos 137. ED provider wishes to admit patient for further evaluation management of frequent falls, weakness, rhabdomyolysis. Hospital Course: Diagnosis Rhabdomyolysis after fall elevated LFTs Lower extremity Weakness, multiple falls Chronic back pain Hypertension Tobacco use disorder Anxiety Rhabdomyolysis after fall multiple falls at home. Patient treated with IV fluid CK level improved significantly Held patient statin during the hospital stay. Statin resumed on discharge elevated LFTs Improved, likely related to rhabdomyolysis. CT abd didn't note any significant finding with liver Weakness, multiple falls Reports near daily falls over the last 1 month. +Increasing lower extremity weakness the past ~3 days. Lives with daughter. Denies lower extremity paresthesias, saddle paresthesia, bowel or bladder incontinence Weakness seems to be more proximal in the lower extremities reports mainly occurs at night - when walking. Does report drinking liquor beverage at night MRI L-spine (October 2022): Mild chronic central compression deformity of L1 vertebral body. Mild lumbar spondylosis. CT head/chest/pelvis (06/15): Noted mild emphysema, small stone inferior right kidney, chronic mild wedge compression fracture of L1 with ~30 height loss, otherwise negative for acute findings. PT consulted, was supposed to have outpatient PT starting 06/18. Patient ambulating with PT with a rolling walker. Patient to resume outpatient physical therapy. Chronic back pain Managed with [place] as needed. Hypertension Resumed home antihypertensives. Patient stated her blood pressure readings are within normal limit with her current regimen Tobacco use disorder Counseled on need for tobacco cessation. Anxiety Restarted home medications. Rhabdomyolysis resolved. Patient has ambulated with therapy. Patient deemed stable for discharge. Fall precautions discussed. Vital Signs/Physical Exam: Temp Pulse Resp BP Pulse Ox 97.9 F 69 16 181/78 H 98 06/19/23 08:00 06/19/23 08:43 06/19/23 08:00 06/19/23 08:43 06/19/23 08:00 General: Alert, In no apparent distress, Oriented x3 HEENT: Mucous membr. moist/pink Neck: Supple, JVD not distended Respiratory: Clear to auscultation bilaterally, Normal air movement Cardiovascular: No edema, Regular rate/rhythm, Normal S1 S2 Gastrointestinal: Normal bowel sounds, Soft and benign, Non-distended Musculoskeletal: No swelling Integumentary: No rashes, No cyanosis Neurological: Normal strength at 5/5 x4 extr Laboratory Data at Discharge: WBC 6.40 thou/uL (4.3-10.9) 06/19/23 06:28 Hgb 12.4 g/dL (12.0-15.0) D 06/19/23 06:28 Hct 35.8 % (36.0-45.0) L 06/19/23 06:28 Plt Count 414 thou/uL (152-406) H 06/19/23 06:28 Sodium 136 mEq/L (136-145) 06/19/23 06:28 Potassium 4.5 mEq/L (3.5-5.1) D 06/19/23 06:28 BUN 10 mg/dL (7-18) 06/19/23 06:28 Creatinine 0.58 mg/dL (0.55-1.02) 06/19/23 06:28 Glucose 97 mg/dL (74-106) 06/19/23 06:28 Magnesium 1.6 mg/dL (1.6-2.4) 06/19/23 06:28 Total Bilirubin 0.3 mg/dL (0.2-1.0) 06/19/23 06:28 AST 36 U/L (15-37) 06/19/23 06:28 ALT 44 U/L (13-56) 06/19/23 06:28 Alkaline Phosphatase 104 U/L (45-117) 06/19/23 06:28 Home Medications: Cholecalciferol (Vitamin D3) [Vitamin D3] 125 mcg PO DAILY 03/28/22 Hydrocodone 5/APAP 325 [[place] 5/325*] 1 tab PO BID 03/28/22 Amlodipine [Norvasc*] 10 mg PO DAILY tab 06/19/23 Enalapril [Vasotec*] 20 mg PO BID tab 06/19/23 Sertraline [Zoloft*] 100 mg PO DAILY #30 tab 06/19/23 New Medications: Sertraline [Zoloft*] 100 mg PO DAILY #30 tab Physician Discharge Instructions: Patient presented with weakness, back pain after a fall. Follow up (ordered and scheduled by Dr. Werner's office): [facility] [id number] appointment - Sunday06/22/23 at 845am Followup: Yumiko Werner MD [Primary Care Provider] - Time spent managing pt's care (in minutes): 33
[2023-06-19 09:22] VITALS: TEMP 97.9; O2SAT 98
== END 2023-06-19 11:16 | disposition home or self-care (01) | DRG 558 ==
LOC: ER 14:33 → ERHOLD 16:45 → 4TH 18:03
PROVIDERS: ADMIT Hospitalist; ATTEND Internal Medicine
DX: M62.82 Rhabdomyolysis (principal); I10 Essential (primary) hypertension; F41.9 Anxiety disorder, unspecified; G89.29 Other chronic pain; M54.9 Dorsalgia, unspecified; J43.9 Emphysema, unspecified; F17.210 Nicotine dependence, cigarettes, uncomplicated; R29.6 Repeated falls; R79.89 Other specified abnormal findings of blood chemistry; Z90.49 Acquired absence of other specified parts of digestive tract; Z91.81 History of falling; Z79.899 Other long term (current) drug therapy; W18.30XA Fall on same level, unspecified, initial encounter; Y92.019 Unspecified place in single-family (private) house as the place of occurrence of the external cause; Y93.9 Activity, unspecified; Y99.9 Unspecified external cause status
CPT/HCPCS: 36415; 70450; 71250; 72125; 80048; 80053; 81001; 82550; 83735; 84439; 84443; 84484; 85025; 96374; 97116; 97161; 99285; J1650; J3475; J7030